=== PATIENT | male | born 1975 | race Caucasian/White ===

== ENCOUNTER 2023-12-14 10:56 | Outpatient (REF) | payer OTHER, SELFPAY ==
[2023-12-14 14:24] LABS: MANUAL DIFF FLAG NO
[2023-12-14 14:28] LABS: Basophils Absolute Auto 0.1 X10*3/uL (0.0-0.2); Basophils Percent Auto 0.6 % (0-2); Eosinophils Absolute Auto 0.2 X10*3/uL (0.0-0.4); Eosinophils Percent Auto 1.9 % (0-4); Hematocrit 43.1 % (42.0-52.0); Hemoglobin 14.7 g/dl (14.0-18.0); Imm Gran Abs Auto 0.09 X10*3/uL (0.00-0.03); Imm Gran Pct Auto 0.9 % (0.0-0.4); Lymphocytes Absolute Auto 3.2 X10*3/uL (1.2-4.9); Lymphocytes Percent Auto 31.5 % (20-40); Mean Corpuscular HGB Conc 34.1 g/dl (31.0-36.0); Mean Corpuscular Hemoglobin 31.7 pg (27.0-33.0); Mean Corpuscular Volume 92.9 fL (80.0-98.0); Mean Platelet Volume 9.4 fL (9.4-12.4); Monocytes Absolute Auto 0.8 X10*3/uL (0.1-1.2); Monocytes Percent Auto 7.8 % (2-11); Neutrophils Absolute Auto 5.9 x10*3/uL (2.0-8.3); Neutrophils Percent Auto 57.3 % (45-73); Platelet Count 191 X10*3/uL (160-400); Red Blood Count 4.64 X10*6/uL (4.60-5.80); Red Cell Distribution Width 14.1 % (11.0-16.0); White Blood Count 10.3 X10*3/uL (4.8-10.8)
[2023-12-14 15:10] LABS: Alanine Aminotransferase 20 U/L (0-40); Albumin Level 4.2 g/dL (3.5-5.0); Alkaline Phosphatase 105 U/L (39-117); Anion Gap 11 (12-20); Aspartate Amino Transferase 24 U/L (5-37); Bilirubin Total 0.4 mg/dL (0.0-1.0); Blood Urea Nitrogen 12 mg/dL (9-16); Calcium 9.5 mg/dL (8.4-10.2); Carbon Dioxide 28 mmol/L (22-29); Chloride 104 mmol/L (96-108); Cholesterol 228 mg/dL (<200); Estimated Glomerular Filt Rate > 60; Glucose Random 101 mg/dL (60-115); HDL Cholesterol 47 mg/dL (>40); LDL Cholesterol Calculated 137 mg/dL (<100); Potassium 4.2 mmol/L (3.3-5.1); Sodium 139 mmol/L (135-145); Total Protein 7.4 g/dL (6.5-8.0); Triglycerides 222 mg/dL (<150)
== END 2023-12-14 10:57 | disposition home or self-care (01) ==
LOC: HO.CHCLDS 10:56
PROVIDERS: Visit Provider Family Medicine
DX: R03.0 Elevated blood-pressure reading, without diagnosis of hypertension (principal)
CPT/HCPCS: 36415; 80053; 80061; 84443; 85025

== ENCOUNTER 2025-01-27 10:01 | Outpatient (REF) | payer MEDICAID, SELFPAY ==
--- OUTSIDE RECORDS SUMMARY | 2025-01-27 11:24 | XMS_ITS | Encounter Summary ---
Author Organization [employer] Address [address] [place] [address] 7 [place] [address] Care Team Providers Care Head Inspector Name Role Phone Zeenat Huitron MD Primary Care Provider [phone] Reason for Visit * Reason Onset Date Comments Lab Orders 01/26/2025 Encounter Details Date Type Department Care Team ([facility] st Contact Info) Description 01/26/2025 Results Follow-Up [facility] CH[facility] MED & PEDS [address] [place] [address] Zeenat Huitron MD [address] [place] [address] Cologuard colon cancer screening Social History Tobacco Use Types Packs/Day Years Used Date Smoking Tobacco: Former Cigarettes Depression Answer Date Recorded Patient Health Questionnaire-9 Score 9 01/09/2025 Patient Health Questionnaire-9 Score 9 01/09/2025 Last PHQ-9: Questionnaire Data Not on file 0 01/09/2025 Depression Answer Date Recorded Patient Health Questionnaire-2 Score 2 01/09/2025 Sex and Gender Information Value Date Recorded Sex Assigned at Male 03/17/2022 10:27 AM EDT Legal Sex Male 10:27 AM EDT Gender Identity Male 03/17/2022 10:27 AM EDT Sexual Orientation Choose not to disclose 2021 10:27 AM EDT documented as of this encounter Miscellaneous Notes * Telephone Encounter - Bisi Zimmer RN - 01/26/2025 1:48 PM EDT TC to pt to inform of information below and assess if pt has questions about cologuard kit. No answer. VM left instructing pt to return call or respond on MyChart documented in this encounter Plan of Treatment Upcoming Encounters Date Type Department Care Team (Late st Contact Info) Description 04/05/2025 1:00 PM EST Office Visit [facility] ADULT DENTAL [address] [place] [address] Ericka Al documented as of this encounter Visit Diagnoses Not on filedocumented in this encounter Additional Health Concerns Assessment Noted Time PHQ-9 Depression Total Score: 9 01/10/20 25 11:40 AM EDT documented as of this encounter Care Teams Head Inspector Relationship Specialty Start Date End Date Zeenat Huitron MD [address] [place] [address] PCP - General Family Medicine 02/27/21 documented as of this encounter
--- OUTSIDE RECORDS SUMMARY | 2025-01-27 11:24 | XMS_ITS | Encounter Summary ---
Author Organization [employer] Address [address] [place] [address] 7 [place] [address] Care Team Providers Care Assistant To The Dean Name Role Phone Zeenat Huitron MD Primary Care Provider [phone] Reason for Visit * Reason Onset Date Comments FYI 10/21/2024 Encounter Details Date Type Department Care Team ([facility] st Contact Info) Description 10/21/2024 Telephone [facility] MEDICINE [address] [place] [address] Zeenat Huitron MD [address] [place] [address] FYI Social History Tobacco Use Types Packs/Day Years Used Date Smoking Tobacco: Former Cigarettes Depression Answer Date Recorded Patient Health Questionnaire-9 Score 9 03/27/2023 Patient Health Questionnaire-9 Score 9 03/27/2023 Last PHQ-9: Questionnaire Data Not on file 1 05/27/2022 Depression Answer Date Recorded Patient Health Questionnaire-2 Score 2 03/27/2023 Sex and Gender Information Value Date Recorded Sex Assigned at Male 03/17/2022 10:27 AM EDT Legal Sex Male 10:27 AM EDT Gender Identity Male 03/17/2022 10:27 AM EDT Sexual Orientation Choose not to disclose 2021 10:27 AM EDT documented as of this encounter Miscellaneous Notes * Telephone Encounter - Kriss Butterfield RN - 10/21/2024 3:27 PM EDT No call made by RNs * Telephone Encounter - Javier Chun - 10/21/2024 3:21 PM EDT Telephone call from patient reporting that someone attempted to contact him but did not leave a message. Patient stated he believes the call may have been to reschedule his appointment, as he was being assisted by a different provider and left appointment. Special Trackwork Blacksmith verified that there are no recent encounters documented. documented in this encounter Plan of Treatment Upcoming Encounters Date Type Department Care Team (Late st Contact Info) Description 04/05/2025 1:00 PM EST Office Visit [facility] ADULT DENTAL [address] [place] [address] Ericka Al documented as of this encounter Visit Diagnoses Not on filedocumented in this encounter Additional Health Concerns Assessment Noted Time PHQ-9 Depression Total Score: 9 03/27/20 23 11:01 AM EST documented as of this encounter Care Teams Assistant To The Dean Relationship Specialty Start Date End Date Zeenat Huitron MD [address] [place] [id number] PCP - General Family Medicine 02/27/21 documented as of this encounter
--- OUTSIDE RECORDS SUMMARY | 2025-01-27 11:24 | XMS_ITS | Encounter Summary ---
Author Organization [employer] Address [address] [place] [address] 7 [place] [address] Care Team Providers Care Paper Products Printer Name Role Phone Zeenat Huitron MD Primary Care Provider [phone] Reason for Visit * Reason Comments Med Refill Encounter Details Date Type Department Care Team (Late st Contact Info) Description 12/23/2023 Refill [facility] MEDICINE [address] [place], [place] [phone] Zeenat Huitron MD [address] [place], [place] [phone] Arm pain, left Social History Tobacco Use Types Packs/Day Years Used Date Smoking Tobacco: Every Day Cigarettes Depression Answer Date Recorded Patient Health [...] AM EDT documented as of this encounter Plan of Treatment Upcoming Encounters Date Type Department Care Team (Late st Contact Info) Description 04/05/2025 1:00 PM EST Office Visit [facility] CH[facility] ADULT DENTAL [address] [place] [address] Ericka Al documented as of this encounter Visit Diagnoses Diagnosis Arm pain, left Pain in soft tissues of limb documented in this encounter Additional Health Concerns Assessment Noted Time PHQ-9 Depression Total Score: 9 03/27/20 23 11:01 AM EST documented as of this encounter Care Teams Paper Products Printer Relationship Specialty Start Date End Date Zeenat Huitron MD [address] [place] [address] PCP - General Family Medicine 02/27/21 documented as of this encounter
--- OUTSIDE RECORDS SUMMARY | 2025-01-27 11:24 | XMS_ITS | Encounter Summary ---
Author Organization [employer] Address [address] [place] [address] 7 [place] [address] Care Team Providers Care Wire Turning Machine Operator Name Role Phone Zeenat Huitron MD Primary Care Provider [phone] Reason for Visit * Reason Comments Med Change Request Encounter Details Date Type Department Care Team ([facility] st Contact Info) Description 05/03/2024 Refill [facility] MED & PEDS [address] [place], [place] [phone] Zeenat Huitron MD [address] [place] [address] Social History Tobacco Use Types Packs/Day Years [...] encounter Miscellaneous Notes * Telephone Encounter - Zeenat Huitron MD - 05/06/2024 11:24 AM EST Insurance does not approve, no alternative, he needs to pay out of pocket documented in this encounter Plan of Treatment Upcoming Encounters Date Type Department Care Team (Late st Contact Info) Description 04/05/2025 1:00 PM EST Office Visit [facility] ADULT DENTAL [address] [place] [address] Ericka Al documented as of this encounter Visit Diagnoses Not on filedocumented in this encounter Additional Health Concerns Assessment Noted Time PHQ-9 Depression Total Score: 9 03/27/20 23 11:01 AM EST documented as of this encounter Care Teams Wire Turning Machine Operator Relationship Specialty Start Date End Date Zeenat Huitron MD [address] [place] [address] PCP - General Family Medicine 02/27/21 documented as of this encounter
--- OUTSIDE RECORDS SUMMARY | 2025-01-27 11:24 | XMS_ITS | Encounter Summary ---
Author Organization [employer] Address [address] [place] [address] 7 [place] [address] Care Team Providers Care Camera Repairer Name Role Phone Zeenat Huitron MD Primary Care Provider [phone] Reason for Visit * Reason Comments Med Change Request Encounter Details Date Type Department Care Team (Late st Contact Info) Description 12/17/2023 Refill [facility] MED & PEDS [address] [place] [address] Zeenat Huitron MD [address] [place] [address] Social History Tobacco Use Types Packs/Day Years [...] Description 04/05/2025 1:00 PM EST Office Visit [facility] ADULT DENTAL [address] [place] [address] Ericka Al documented as of this encounter Visit Diagnoses Not on filedocumented in this encounter Additional Health Concerns Assessment Noted Time PHQ-9 Depression Total Score: 9 03/27/20 23 11:01 AM EST documented as of this encounter Care Teams Camera Repairer Relationship Specialty Start Date End Date Zeenat Huitron MD [address] [place] [address] PCP - General Family Medicine 02/27/21 documented as of this encounter
--- OUTSIDE RECORDS SUMMARY | 2025-01-27 11:24 | XMS_ITS | Encounter Summary ---
Author Organization [employer] Address [address] [place] [address] 7 [place] [address] Care Team Providers Care Orthotist Or Prosthetist Name Role Phone Zeenat Huitron MD Primary Care Provider [phone] Reason for Visit * Reason Onset Date Comments Nurse Triage 08/10/2024 Encounter Details Date Type Department Care Team ([facility] st Contact Info) Description 08/10/2024 Telephone [facility] MEDICINE [address] [place] [address] Zeenat Huitron MD [address] [place] [address] Nurse Triage Social History Tobacco Use Types Packs/Day Years [...] encounter Miscellaneous Notes * Telephone Encounter - Lolita Tran RN - 08/10/2024 4:02 PM EDT Triage call Pt requests japanese interpreter. Called [facility] [place] [id number], [place]. Pt reports dislocation of right shoulder , seen in [facility] 07/25/24. Pt has had follow up tele visit with on 07/26/24. Pt is being seen by surgeon and will return in 2 weeks for another apt. Pt iscalling due to ibuprofen is not helping with the pain. Pt was advised to contact PCP. Pt is advisedto use ice on the shoulder area and/or heat and to keep arm immobilized as much as possible. Pt agrees with this home care advice. ASK apt 08/17/24 215pm with ANGIE Knott in [facility] . Pt agrees with this disposition and insurance is verified as active prior to booking. Protocol Used: Shoulder Injury (Adult) Protocol-Based Disposition: See in Office or Video Visit within 3 Days Video visit not offered Positive Triage Question: * Injury is still painful or swollen after 2 weeks * All higher-acuity triage questions were negative Care Advice Discussed: * Use a Cold Pack for Pain, Swelling, or Bruising * Use Heat on Area After 48 Hours * Rest vs. Movement * Reasons To Call Back - Severe pain lasts over 2 hours after pain medicine and ice - Swelling or bruise becomes over 2 inches (5 cm). - Pain not improved after 3 days - Pain or swelling lasts over 2 weeks - You become worse * Telephone Encounter - Javier Chun - 08/10/2024 3:08 PM EDT Symptom: Arm Injury Outcome: Talk to a nurse or provider within 15 minutes Reason: Severe pain now The caller accepted this outcome. documented in this encounter Plan of Treatment Upcoming Encounters Date Type Department Care Team (Late st Contact Info) Description 04/05/2025 1:00 PM EST Office Visit [facility] ADULT DENTAL [address] [place], [place] [phone] Ericka Al documented as of this encounter Visit Diagnoses Not on filedocumented in this encounter Additional Health Concerns Assessment Noted Time PHQ-9 Depression Total Score: 9 03/27/20 23 11:01 AM EST documented as of this encounter Care Teams Orthotist Or Prosthetist Relationship Specialty Start Date End Date Zeenat Huitron MD [address] [place] [address] PCP - General Family Medicine 02/27/21 documented as of this encounter
--- OUTSIDE RECORDS SUMMARY | 2025-01-27 11:24 | XMS_ITS | Clinical Summary ---
Author Organization [employer] Address [address] [place] [address] 7[address] [place] [address] Care Team Providers Care Blanket Inspector Name Role Phone Zeenat Huitron MD Primary Care Provider [phone] Allergies Active Allergy Reactions Criticality Noted Date Comments Amlodipine 03/04/2021 Other reaction(s): side effec Medications * This document contains information received from the source organization and may not represent a complete record from that organization. methadone (Dolophine) 10 MG/ML solution Take 85 mg by mouth in the morning. BHN Active Diclofenac Sodium 1 % gel APPLY 5GM TOPICALLY IF NEEDED IN THE MORNING,AT NOON IN THE EVENING AT BEDTIME FOR PAIN 200 g 05/04/20 23 Active buPROPion SR (Wellbutrin SR) 150 MG 12 hr tablet Take 1 tablet (150 mg) by mouth 2 times daily. Do not crush, chew, or split. 60 tablet 2 06/18/19 24 Active hydroquinone 4 % creamIndication s:Melasma Apply topically 2 times daily. 30 mL 1 05/03/20 24 025 Active rosuvastatin (Crestor) 40 MG tablet TAKE 1 TABLET BY MOUTH EVERY DAY 90 tablet 1 12/14/19 25 Active losartan (Cozaar) 25 MG tabletIndicatio ns:Elevated blood pressure reading TAKE 1 TABLET (25 MG) BY MOUTH ONCE PER DAY. 90 tablet 3 12/20/19 25 Active gabapentin (Neurontin) 400 MG capsuleIndicati ons:Chronic low back pain, unspecified back pain laterality, unspecified whether sciatica present Take 1 capsule in AM and PM, and 2 capsule at bedtime PO 90 capsule 11 01/12/20 25 Active gabapentin (Neurontin) 300 MG capsuleIndicati ons:Arm pain, left TAKE 1 CAPSULE BY MOUTH IN THE MORNING, 1 CAPSULE IN THE AFTERNOON & 2 CAPSULES BEFORE BEDTIME 120 capsule 3 12/14/19 25 025 Discontinued(In effective) gabapentin (Neurontin) 400 MG capsule Take 1 capsule (400 mg) by mouth 3 times daily. 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 Continue on medication and at home monitoring. Follow up in 3-4 months. 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 Relevant Medications Hydroquinone 4% cream Arm pain, left 03/27/2023 Assessment & Plan (04/24/2023 11:40 AM EST): Patient still presents visit with concerns of arm pain, therefore, will have increase of Gabapentin. Chronic pain of right thumb 03/27/2023 Assessment & Plan (03/27/2023 11:17 AM EST): Patient that presented visit with complaints of pain on L thumb will be sent for X-Rays and treated with Diclofenac Sodium. Chronic low back pain 03/13/2023 03/13/2023 Chronic depression 03/13/2023 03/13/2023 Tobacco user 03/13/2023 03/13/2023 Resolved Problems Problem Noted Date Diagnosed Date Resolved Date Elevated blood pressure reading 03/27/2023 02/03/2024 Assessment & Plan (12/18/2023 8:32 AM EDT): Continue to monitor at home and bring readings on next visit. F/u in 2-3 weeks for recheck. Assessment & Plan (06/18/2023 2:17 PM EST): Patient will be sent for labs for further evaluation. -Labs: CBC, Lipid Panel, Comprehensive Metabolic Panel, TSH/FT4. Assessment & Plan (04/24/2023 11:47 AM EST): Uncontrolled: patient presented visit with elevated blood pressure with readings of 140/92 mmHg. Advised to monitor blood pressure at home, and bring readings upon next office visit. Assessment & Plan (03/27/2023 11:17 AM EST): Uncontrolled: patient that presented visit with an elevated blood pressure with readings of 148/90 mmHg., will have a change of medication: Gabapentin 300MG. Recommended to keep monitoring blood pressure at home, and bring readings upon next office visit. Follow up in 1 month. Encounters * This document contains information received from the source organization and may not represent a complete record from that organization. Date Type Department Care Team Description 01/26/2025 Results Follow-Up [facility] MED & PEDS [address] [place] [address] Zeenat Huitron MD [facility] colon cancer screening 01/11/2025 Telephone [facility] [address] [place] [address] Zeenat Huitron MD Medication Question 01/09/2025 11:15 AM EDT Office Visit [facility] [address] [place] [address] Zeenat Huitron MD Primary hypertension (Primary Dx); Chronic low back pain, unspecified back pain laterality, unspecified whether sciatica present; Screening for colon cancer; Encounter for health-related screening; Positive screening for depression on 9-item Patient Health Questionnaire (PHQ-9) 01/09/2025 Travel 12/30/2024 Patient Outreach [facility] MEDICINE [address] [place] [address] Zeenat Huitron MD Pre-visit Planning (Pre visit planning LVM ) 12/29/2024 Telephone [facility] [address] [place] [address] Zeenat Huitron MD chart prep 12/17/2024 Refill [facility] CHC MED & PEDS [address] [place] [address] Zeenat Huitron MD Elevated blood pressure reading 12/12/2024 Refill [facility] MEDICINE [address] [place] [address] Alli Michaels MD Arm pain, left 12/11/2024 Refill [facility] MED & PEDS [address] [place] [address] Amelie Cook MD Arm pain, left 12/08/2024 Telephone [facility] MED & PEDS [address] [place] [address] Zeenat Huitron MD No Show 12/01/2024 Telephone [facility] MED & PEDS [address] [place] [address] Zeenat Huitron MD chart prep 11/08/2024 Telephone [facility] MEDICINE [address] [place] [address] Zeenat Huitron MD Medication Question from Last 3 Months Immunizations Immunization Administration Dates Next Due Influenza, IIV3, injectable 02/17/2013 Influenza, seasonal, injectable, preservative fr ee 02/01/2024 Pneumococcal Conjugate PCV 20 12/17/2023 Tdap 12/17/2023 Social History Tobacco Use Types Packs/Day Years Used Date Smoking Tobacco: Former Cigarettes Tobacco Cessation:Counseling Given: Not Answered Depression Answer Date Recorded Patient Health Questionnaire-9 [...] not to disclose 2021 10:27 AM EDT Last Filed Vital Signs Vital Sign Reading Time Taken Comments Blood Pressure 126/86 01/09/2025 11:05 AM EDT Pulse 84 01/09/2025 11:05 AM EDT Temperature 36.6 C (97.8 F) 01/09/2025 11:05 AM EDT Respiratory Rate 20 01/09/2025 11:05 AM EDT Oxygen Saturation 99% 01/09/2025 11:05 AM EDT Inhaled Oxygen Concentration - - Weight 60.8 kg (134 lb) 01/09/2025 11:05 AM EDT Height 159 cm (5' 2.6 ) 01/09/2025 11:05 AM EDT Body Mass Index 24.04 01/09/2025 11:05 AM EDT Plan of Treatment Upcoming Encounters Date Type Department Care Team (Late st Contact Info) Description 04/05/2025 1:00 PM EST Office Visit [facility] [address] [place] [address] Ericka Al Health Maintenance Due Date Last Done Comments CT Colonography 1976 Colonoscopy 1976 Colorectal Cancer Screening 1976 FIT DNA/Cologuard 1976 FIT 1976 FOBT 1976 HIV Screening 1976 SDOH Screening 1976 Sigmoidoscopy 1976 Disability Screening 1976 Alcohol/Substance Use Screening 1988 Family Planning (PISQ) 08/27/1991 Hepatitis B Vaccines (1 of 3 - 19+ 3-dose series) 08/27/1995 Dental Oral Exam 09/02/2024 03/03/2024, 06/08/2015, 10/23/2014 Dental Prophylaxis 09/02/2024 03/03/2024 COVID-19 Vaccine (3 - 2024-2 6 season) 2025 07/30/2021, 10/03/2020 Influenza Vaccine (#1) 2025 , 02/17/2013 Dental X-Ray: Bitewings 03/04/2025 03/03/20 24, 10/23/2014 Depression Monitoring 07/12/2025 01/09/2025 , 01/09/2025 Tobacco Screening 01/09/2026 01/09/2025 Zoster Vaccines (1 of 2) 2026 Dental X-Ray: Full Mouth 03/04/2027 024, 10/23/2014 Lipid Panel 12/13/2028 12/14/2023 DTaP/Tdap/Td Vaccines (2 - T d or Tdap) 12/16/2033 12/17/2023 RSV Patients and Patients Aged 60 years or older (1 - 1-dose 75+ series) 08/27/2051 Pneumococcal Vaccine: Pediatrics (0 to 5 Years) and At-Risk Patients (6 to 49) Years Aged Out 12/17/2023 No longer eligible based on patient's age to complete this topic HIB Vaccines Aged Out No longer eligi ble based on patient's age to complete this topic HPV Vaccines Aged Out No longer eligi ble based on patient's age to complete this topic Hepatitis A Vaccines Aged Out No long er eligible based on patient's age to complete this topic Hepatitis C Screening Discontinued IPV Vaccines Aged Out No longer eligi ble based on patient's age to complete this topic Meningococcal B Vaccine Aged Out No l onger eligible based on patient's age to complete this topic Meningococcal Vaccine Aged Out No neil maria antonia eligible based on patient's age to complete this topic RSV under 20 months Aged Out No longe r eligible based on patient's age to complete this topic Rotavirus Vaccines Aged Out No longer eligible based on patient's age to complete this topic Procedures Procedure Name Priority Date/Time Associated Diagnosis Comments LAB COLOGUARD COLON CANCER SCREEN- Unsuccessful Attempt Routine 01/18/2025 10:46 PM EDT Screening for colon cancer PROPHYLAXIS - ADULT Routine 03/03/2024 1 0:00 AM EDT INTRAORAL - COMPLETE SERIES OF RADIOGRAPHIC IMAGES Routine 03/03/2024 10:00 AM EDT PERIODIC ORAL EVALUATION - ESTABLISHED PATIENT Routine 03/03/2024 10:00 AM EDT LIPID PANEL, STANDARD Routine 12/14/2023 11:13 AM EDT Elevated blood pressure reading from Last 3 Months or Most Recently Relevant to Health Maintenance Results * Cologuard?? colon cancer screening (01/18/2025 10:46 PM EDT) - Unsuccessful Attempt Cologuard Result Sample Could Not Be Processed 9 N/A 01/18/2025 10:46 PM EDT [facility] (CLIA #:[id number]) Comment: The Cologuard (TM) test was assigned to this specimen. An empty collection kit was received in the laboratory. The patient will be contacted to initiate a new sample collection. Stool specimen (specimen) 01/18/2025 10:05 AM EDT us Zeenat Huitron MD LAB MOLECULAR DIAGNOSTICS ORD ERABLES Final Result [facility] (CLIA #:[id number]) [address] [place] [address], [place] [phone] * (ABNORMAL) Lipid Panel, Standard (12/14/2023 11:13 AM EDT) Triglycerides 222(H) <150 mg/dL [facility] Comment:Desirable Triglyceri de: less than 150 mg/dLBorderline High Triglyceride 150-199 mg/dLHigh Triglyceride: 200-499 mg/dLVery High Triglyceride: greater than or equal to 5OO mg/dL Cholesterol 228(H) <200 mg/dL [facility] Comment:Desirable Cholestero l: less than 200 mg/dLBorderline High Cholesterol: 200-239 mg/dLHigh Cholesterol: greater than 239 mg/dL LDL Cholesterol Calculated 137(H) <100 mg/dL [facility] Comment:Desirable LDL: less than 100 mg/dLNear Optimal/Above Optimal LDL: 110- 129 mg/dLBorderline High LDL: 130-159 mg/dLHigh LDL: 160-189 mg/dLVery High LDL: greater than or equal to 190 mg/dL HDL Cholesterol 47 >40 mg/dL [facility] Comment:Desirable HDL: great er than 40 mg/dL Note: This HDL assay may give artificially low results in patients with liver disease. Blood Venous blood specimen / Unknown 12/14/2023 11:13 AM EDT 12/14/2023 2:13 PM EDT Zeenat Huitron MD LAB BLOOD ORDERABLES Final Re sult [facility] [address] [place] [address] [phone] from Last 3 Months or Most Recently Relevant to Health Maintenance Insurance [facility] C3 DENTAL-[facility] MEDICAID STAND ADULT Care Teams Blanket Inspector Relationship Specialty Start Date End Date Zeenat Huitron MD [address] [place] [id number] PCP - General Family Medicine 02/27/21
--- OUTSIDE RECORDS SUMMARY | 2025-01-27 11:24 | XMS_ITS | Encounter Summary ---
Author Organization [employer] Address [address] [place] [address] 7 [place] [address] Care Team Providers Care Filler Sifter Machine Name Role Phone Zeenat Huitron MD Primary Care Provider [phone] Reason for Visit * Reason Onset Date Comments Appointment Request 04/11/2024 Encounter Details Date Type Department Care Team ([facility] st Contact Info) Description 04/11/2024 Telephone [facility] MEDICINE [address] [place] [address] Zeenat Huitron MD [address] [place] [address] Appointment Request Social History Tobacco Use Types Packs/Day Years [...] encounter Miscellaneous Notes * Telephone Encounter - Gatito Crocker - 04/11/2024 11:57 AM EST Tc from pt requesting to r/s appt on 04/12. Contact pt at [phone] documented in this encounter Plan of Treatment Upcoming Encounters Date Type Department Care Team (Late st Contact Info) Description 04/05/2025 1:00 PM EST Office Visit [facility] ADULT DENTAL [address] [place] [address] Ericka Al documented as of this encounter Visit Diagnoses Not on filedocumented in this encounter Additional Health Concerns Assessment Noted Time PHQ-9 Depression Total Score: 9 03/27/20 23 11:01 AM EST documented as of this encounter Care Teams Filler Sifter Machine Relationship Specialty Start Date End Date Zeenat Huitron MD [address] [place] [address] PCP - General Family Medicine 02/27/21 documented as of this encounter
--- OUTSIDE RECORDS SUMMARY | 2025-01-27 11:24 | XMS_ITS | Encounter Summary ---
Author Organization [employer] Address [address] [place] [address] 7 [place] [address] Care Team Providers Care Director Translation Name Role Phone Zeenat Huitron MD Primary Care Provider [phone] Reason for Visit * Reason Onset Date Comments Medication Question 11/08/2024 Encounter Details Date Type Department Care Team ([facility] st Contact Info) Description 11/08/2024 Telephone [facility] MEDICINE [address] [place] [address] Zeenat Huitron MD [address] [place] [phone] Medication Question Social History Tobacco Use Types Packs/Day Years [...] encounter Miscellaneous Notes * Telephone Encounter - James Irizarry - 11/08/2024 10:49 AM EDT Tc from pt requesting call back to disucss increasing dosage on gabapentin (Neurontin) 300 MG capsule. Pt was scheduled an appt back on 10/19 but states he does nto want to see a different provider other than his pcp. Please contact pt at [phone]. documented in this encounter Plan of Treatment Upcoming Encounters Date Type Department Care Team (Late st Contact Info) Description 04/05/2025 1:00 PM EST Office Visit [facility] ADULT DENTAL [address] [place] [address] Ericka Al documented as of this encounter Visit Diagnoses Not on filedocumented in this encounter Additional Health Concerns Assessment Noted Time PHQ-9 Depression Total Score: 9 03/27/20 23 11:01 AM EST documented as of this encounter Care Teams Director Translation Relationship Specialty Start Date End Date Zeenat Huitron MD [address] [place] [address] PCP - General Family Medicine 02/27/21 documented as of this encounter
--- OUTSIDE RECORDS SUMMARY | 2025-01-27 11:24 | XMS_ITS | Encounter Summary ---
Author Organization [employer] Address [address] [place] [address] 7 [place] [address] Care Team Providers Care Insole Cementer Name Role Phone Zeenat Huitron MD Primary Care Provider [phone] Reason for Visit * Reason Comments Med Refill Encounter Details Date Type Department Care Team (Late st Contact Info) Description 06/30/2023 Refill [facility] MED & PEDS [address] [place] [address] Zeenat Huitron MD [address] [place] [address] Social History Tobacco Use Types Packs/Day Years [...] Description 04/05/2025 1:00 PM EST Office Visit [facility] ADULT DENTAL [address] [place] [address] Ericka Al documented as of this encounter Visit Diagnoses Not on filedocumented in this encounter Additional Health Concerns Assessment Noted Time PHQ-9 Depression Total Score: 9 03/27/20 23 11:01 AM EST documented as of this encounter Care Teams Insole Cementer Relationship Specialty Start Date End Date Zeenat Huitron MD [address] [place] [address] PCP - General Family Medicine 02/27/21 documented as of this encounter
--- OUTSIDE RECORDS SUMMARY | 2025-01-27 11:24 | XMS_ITS | Clinical Summary ---
Author Organization [employer] [facility] it[facility] Address [address] [place] [address] Care Team Providers Care Rehab Technician Name Role Phone Unavailable Primary Care Provider Unavailabl e Social History Tobacco Use Types Packs/Day Years Used Date Smoking Tobacco: Never Assessed Sex and Gender Information Value Date Recorded Sex Assigned at Not on file Legal Sex Male 2:16 AM EST Gender Identity Not on file Sexual Orientation Not on file Plan of Treatment Health Maintenance Due Date Last Done Comments DTaP,Tdap,and Td Vaccines (1 - Tdap) 08/27/1995 Hepatitis B Vaccines (1 of 3 - 19+ 3-dose series) 08/27/1995 Depression Screening 05/18/2024 COVID-19 Vaccine (1 - 2023-2 5 season) 2025 Influenza Vaccine (#1) 2025 HIB Vaccines Aged Out No longer eligi ble based on patient's age to complete this topic HPV Vaccines Aged Out No longer eligi ble based on patient's age to complete this topic Hepatitis A Vaccines Aged Out No long er eligible based on patient's age to complete this topic IPV Vaccines Aged Out No longer eligi ble based on patient's age to complete this topic MMR Vaccines Aged Out No longer eligi ble based on patient's age to complete this topic Meningococcal ACWY Vaccine Aged Out N o longer eligible based on patient's age to complete this topic Meningococcal B Vaccine Aged Out No l onger eligible based on patient's age to complete this topic Pneumococcal Vaccine: Pediat rics (0 to 5 Years) and At-Risk Patients (6 to 49 Years) Aged Out No longer eligible b ased on patient's age to complete this topic RSV Immunization Patients Un margarito 20 months Aged Out No longer eligible b ased on patient's age to complete this topic Varicella Vaccines Aged Out No longer eligible based on patient's age to complete this topic
--- OUTSIDE RECORDS SUMMARY | 2025-01-27 11:24 | XMS_ITS | Encounter Summary ---
Author Organization [employer] Address [address] [place] [address] 7 [place] [address] Care Team Providers Care Gear Room Keeper Name Role Phone Zeenat Huitron MD Primary Care Provider [phone] Reason for Visit * Reason Comments Med Change Request Encounter Details Date Type Department Care Team (Late st Contact Info) Description 12/17/2023 Refill [facility] MED & PEDS [address] [place] [address] Zeenat Huitron MD [address] [place] [address] Social History Tobacco Use Types Packs/Day Years [...] Description 04/05/2025 1:00 PM EST Office Visit [facility] ADULT DENTAL [address] [place] [address] Ericka Al documented as of this encounter Visit Diagnoses Not on filedocumented in this encounter Additional Health Concerns Assessment Noted Time PHQ-9 Depression Total Score: 9 03/27/20 23 11:01 AM EST documented as of this encounter Care Teams Gear Room Keeper Relationship Specialty Start Date End Date Zeenat Huitron MD [address] [place] [address] PCP - General Family Medicine 02/27/21 documented as of this encounter
--- OUTSIDE RECORDS SUMMARY | 2025-01-27 11:24 | XMS_ITS | Encounter Summary ---
Author Organization [employer] Address [address] [place] [address] 7 [place] [address] Care Team Providers Care Cnc Lathe Programmer Name Role Phone Zeenat Huitron MD Primary Care Provider [phone] Reason for Visit * Reason Comments Med Change Request Encounter Details Date Type Department Care Team (Late Contact Info) Description 05/21/2024 Refill [facility] MED & PEDS [address] [place] [address] Alli Michaels MD [address] [place] [address] Melasma Social History Tobacco Use Types Packs/Day Years [...] Encounters Date Type Department Care Team (Late Contact Info) Description 04/05/2025 1:00 PM EST Office Visit [facility] ADULT DENTAL [address] [place] [address] Ericka Al documented as of this encounter Visit Diagnoses Diagnosis Melasma Other dyschromia documented in this encounter Additional Health Concerns Assessment Noted Time PHQ-9 Depression Total Score: 9 03/27/20 23 11:01 AM EST documented as of this encounter Care Teams Cnc Lathe Programmer Relationship Specialty Start Date End Date Zeenat Huitron MD [address] [place] [address] PCP - General Family Medicine 02/27/21 documented as of this encounter
[2025-01-27 14:24] LABS: MANUAL DIFF FLAG NO
[2025-01-27 14:32] LABS: Hematocrit 38.7 % (42.0-52.0); Hemoglobin 12.9 g/dl (14.0-18.0); Imm Gran Abs Auto 0.04 X10*3/uL (0.00-0.03); Imm Gran Pct Auto 0.5 % (0.0-0.4); Lymphocytes Absolute Auto 1.3 X10*3/uL (1.2-4.9); Mean Corpuscular HGB Conc 33.3 g/dl (31.0-36.0); Mean Corpuscular Hemoglobin 31.5 pg (27.0-33.0); Mean Corpuscular Volume 94.6 fL (80.0-98.0); NRBC Abs Auto 0.000 X10*3/uL (0.0-0.012); NRBC Pct Auto 0.0 /100WBC (0.0-0.2); Platelet Count 163 X10*3/uL (160-400); Red Blood Count 4.09 X10*6/uL (4.60-5.80); White Blood Count 8.3 X10*3/uL (4.8-10.8)
[2025-01-27 14:38] LABS: Appearance Urine Turbid; Glucose Urine UA Negative (Negative); PH 5.5 (5.0-9.0); Specific Gravity - Urine 1.020 (1.005-1.025)
[2025-01-27 15:10] LABS: Alanine Aminotransferase 25 U/L (0-40); Albumin Level 4.5 g/dL (3.5-5.0); Alkaline Phosphatase 124 U/L (39-117); Anion Gap 11 (12-20); Aspartate Amino Transferase 44 U/L (5-37); Blood Urea Nitrogen 17 mg/dL (9-16); Calcium 9.2 mg/dL (8.4-10.2); Carbon Dioxide 28 mmol/L (22-29); Chloride 106 mmol/L (96-108); Cholesterol 99 mg/dL (<200); Estimated Glomerular Filt Rate 54; HDL Cholesterol 44 mg/dL (>40); Potassium 5.4 mmol/L (3.3-5.1); Sodium 140 mmol/L (135-145); Total Protein 7.2 g/dL (6.5-8.0); Triglycerides 49 mg/dL (<150)
[2025-01-27 15:26] LABS: PSA,Total (Free>4and<10) 0.35 ng/mL (0.00-4.00)
[2025-01-28 08:44] LABS: HBS Num1 418.90 mIU/mL (0-7.99); HBc Num1 0.15 S/CO (0.00-0.79); HBsAGNum1 0.35 S/CO (0.00-0.99); HIV Num 1 0.04 S/CO (0.00-0.99); Hepatitis B Surface Antigen Negative (Negative); ~Hepatitis B Surface Antibody REACTIVE (Nonreactive)
== END 2025-01-27 10:02 | disposition home or self-care (01) ==
LOC: HO.CHCLDS 10:01
PROVIDERS: Visit Provider Family Medicine
DX: Z11.4 Encounter for screening for human immunodeficiency virus [HIV] (principal); Z11.59 Encounter for screening for other viral diseases; I10 Essential (primary) hypertension
CPT/HCPCS: 36415; 80053; 80061; 81003; 84153; 85025; 86704; 86706; 87340; 87389

== ENCOUNTER 2025-02-13 14:27 | Outpatient (REF) | payer MEDICAID, SELFPAY ==
--- OUTSIDE RECORDS SUMMARY | 2025-02-13 11:15 | XMS_ITS | Encounter Summary ---
Author Organization [employer] Address [address] [place] [address] 7 [place] [address] Care Team Providers Care Technical Project Coordinator Name Role Phone Zeenat Huitron MD Primary Care Provider [phone] Reason for Referral * Consultation (Routine) - Pending Review Specialty Diagnoses / Procedures Referred By Marissa ferrera Referred To Contact Urology Diagnoses Kidney stones Zeenat Huitron MD [address] [place] [address] Phone: tel: fax: Referral ID Status Reason Start Date Expiration Date Visits Requested Visits Authorized [id number] Pending Review Specialty Services Required 02/13/2025 02/13/2026 1 1 Encounter Details Date Type Department Care Team ([facility] st Contact Info) Description 02/13/2025 11:15 AM EDT Office Visit [facility] MED & PEDS [address] [place] [address] Zeenat Huitron MD [address] [place] [address] Primary hypertension (Primary Dx); Chronic low back pain, unspecified back pain laterality, unspecified whether sciatica present; Abnormal flushing and sweating; Kidney stones Social History Tobacco Use Types Packs/Day Years Used Date Smoking Tobacco: Former Cigarettes Depression Answer Date Recorded Patient Health Questionnaire-9 Score 5 02/13/2025 Patient Health Questionnaire-9 Score 5 02/13/2025 Last PHQ-9: Questionnaire Data Not on file 0 02/13/2025 Housing Stability Answer Date Recorded What is your housing situation today? I have lucy wolfe 02/13/[address] you li ve. Do you have problems with any of the following? None of the above 02/13/2025 Food Insecurity Answer Date Recorded Within the past 12 months, y ou worried that your food would run out before you got money to buy more: Sometimes True 2024 Within the past 12 months,th e food you bought just didn't last and you didn't have enough money to get more: Sometimes True 02/13/2025 Transportation Answer Date Recorded In the past 12 months, has l ack of transportation kept you from medical appts, meetings, work or from getting things needed for daily living? No 02/13/2025 Utilities Answer Date Recorded In the past 12 months, has t he electric, gas, oil or water company threatened to shut off services in your home? No 02/13/2025 Depression Answer Date Recorded Patient Health Questionnaire-2 Score 0 02/13/2025 Internet Access Answer Date Recorded Internet Access Q1 Yes 02/13/2025 Internet Access Q2 Not on file 02/13/2025 Sex and Gender Information Value Date Recorded Sex Assigned at Male 03/17/2022 10:27 AM EDT Legal Sex Male 10:27 AM EDT Gender Identity Male 03/17/2022 10:27 AM EDT Sexual Orientation Choose not to disclose 2021 10:27 AM EDT documented as of this encounter Last Filed Vital Signs Vital Sign Reading Time Taken Comments Blood Pressure 133/90 02/13/2025 11:16 AM EDT Pulse 90 02/13/2025 11:16 AM EDT Temperature 36.4 C (97.6 F) 02/13/2025 11:16 AM EDT Respiratory Rate 20 02/13/2025 11:16 AM EDT Oxygen Saturation 99% 02/13/2025 11:16 AM EDT Inhaled Oxygen Concentration - - Weight 60.3 kg (133 lb) 02/13/2025 11:16 AM EDT Height 159 cm (5' 2.6 ) 02/13/2025 11:16 AM EDT Body Mass Index 23.86 02/13/2025 11:16 AM EDT documented in this encounter Functional Status * Over the past 2 weeks, how often have you been bothered by any of the following problems? Question Answer Date of Assessment Author Patient Health Questionnaire -2 Score 0 02/13/2025 11:16 AM EDT Wood Mcguire MA * Little interest or pleasure in doing things Answer Date of Assessment Author Not at all 02/13/2025 11:16 AM EDT Wood Mcguire MA * Feeling down, depressed, or hopeless Answer Date of Assessment Author Not at all 02/13/2025 11:16 AM EDT Wood Mcguire MA * Trouble falling or staying asleep, or sleeping too much Answer Date of Assessment Author Nearly every day 02/13/2025 11:16 AM EDT Wood Mcguire MA * Feeling tired or having little energy Answer Date of Assessment Author Not at all 02/13/2025 11:16 AM APRILT Wood Mcguire MA * Poor appetite or overeating Answer Date of Assessment Author Several days 02/13/2025 11:16 AM APRILT Wood Mcguire MA * Feeling bad about yourself - or that you are a failure or have let yourself or your family down Answer Date of Assessment Author Not at all 02/13/2025 11:16 AM Wood Platt MA * Trouble concentrating on things, such as reading the newspaper or watching television Answer Date of Assessment Author Several days 02/13/2025 11:16 AM Wood Platt MA * Moving or speaking so slowly that other people could have noticed? Or the opposite - being so fidgety or restless that you have been moving around a lot more than usual. Answer Date of Assessment Author Not at all 02/13/2025 11:16 AM Wood Platt MA * Thoughts that you would be better off or hurting yourself in some way Answer Date of Assessment Author Not at all 02/13/2025 11:16 AM Wood Platt MA * Patient Health Questionnaire-9 Score Answer Date of Assessment Author 5 02/13/2025 11:16 AM Wood Platt MA * How difficult have these problems made it for you to do your work, take care of things at home, or get along with other people? Answer Date of Assessment Author Not difficult at all 02/13/2025 11:16 AM EDT Wood Brewster MA documented as of this encounter Plan of Treatment Upcoming Encounters Date Type Department Care Team (Late st Contact Info) Description 04/05/2025 1:00 PM EST Office Visit [facility] ADULT DENTAL [address] [place] [address] Ericka Al Scheduled Orders Name Type Priority Associated Diagnoses Orde r Schedule TSH W/Reflex to FT4 Lab Routine Abnormal flushing and sweating Expected: 02/13/2025 (Approximate), Expires: 02/13/2026 T-SPOT .TB Lab Routine Abnormal flushing and sweating Expected: 02/13/2025 (Approximate), Expires: 02/13/2026 HIV-1/2 Antigen and Antibodies, Fourth Generation, with Reflexes Lab Routine Abnormal flushing and sweating Expected: 02/13/2025 (Approximate), Expires: 02/13/2026 Sed Rate by Modified [place]gren Lab Routine Abnormal flushing and sweating Expected: 02/13/2025, Expires: 02/13/2026 C-reactive Protein Lab Routine Abnormal flushing and sweating Expected: 02/13/2025 (Approximate), Expires: 02/13/2026 Stone Analysis with Image Lab Routine Kidney stones Expected: 02/13/2025 (Approximate), Expires: 02/13/2026 Scheduled Referrals Name Type Priority Associated Diagnoses Orde r Schedule Referral to Urology Outpatient Referral Routine Kidney stones Expected: 02/13/2025 (Approximate), Expires: 02/13/2026 documented as of this encounter Visit Diagnoses Diagnosis Primary hypertension- Primary Unspecified essential hypertension Chronic low back pain, unspecified back pain laterality, unspecified whether sciatica present Abnormal flushing and sweating Kidney stones Calculus of kidney documented in this encounter Additional Health Concerns Assessment Noted Time PHQ-9 Depression Total Score: 5 02/14/20 25 11:16 AM EDT documented as of this encounter Care Teams Technical Project Coordinator Relationship Specialty Start Date End Date Zeenat Huitron MD [address] [place] [address] PCP - General Family Medicine 02/27/21 documented as of this encounter
--- OUTSIDE RECORDS SUMMARY | 2025-02-13 16:19 | XMS_ITS | Encounter Summary ---
Author Organization [employer] Address [address] [place] [address] 7 [place] [address] Care Team Providers Care Nurses Superintendent Name Role Phone Zeenat Huitron MD Primary Care Provider [phone] Reason for Visit * Reason Onset Date Comments Medication Question 11/08/2024 Encounter Details Date Type Department Care Team ([facility] st Contact Info) Description 11/08/2024 Telephone [facility] MEDICINE [address] [place] [address] Zeenat Huitron MD [address] [place] [phone] Medication Question Social History Tobacco Use Types [...] than his pcp. Please contact pt at [phone]. documented in this encounter Plan of Treatment Upcoming Encounters Date Type Department Care Team (Late st Contact Info) Description 04/05/2025 1:00 PM EST Office Visit [facility] ADULT DENTAL [address] [place] [address] Ericka Al documented as of this encounter Visit Diagnoses Not on filedocumented in this encounter Additional Health Concerns Assessment Noted Time PHQ-9 Depression Total Score: 9 03/27/20 23 11:01 AM EST documented as of this encounter Care Teams Nurses Superintendent Relationship Specialty Start Date End Date Zeenat Huitron MD [address] [place] [address] PCP - General Family Medicine 02/27/21 documented as of this encounter
--- OUTSIDE RECORDS SUMMARY | 2025-02-13 16:19 | XMS_ITS | Encounter Summary ---
Author Organization [employer] Address [address] [place] [address] 7 [place] [address] Care Team Providers Care Telecommunications Field Technician Name Role Phone Zeenat Huitron MD Primary Care Provider Reason for Visit * Reason Onset Date Comments FYI 10/21/2024 Encounter Details Date Type Department Care Team ([facility] st Contact Info) Description 10/21/2024 Telephone [facility] MEDICINE [address] [place] [address] Zeenat Huitron MD [address] [place] [address] FYI Social History Tobacco Use Types Packs/Day [...] by a different provider and left appointment. Customer Experience Manager verified that there are no recent encounters documented. documented in this encounter Plan of Treatment Upcoming Encounters Date Type Department Care Team (Late st Contact Info) Description 04/05/2025 1:00 PM EST Office Visit [facility] ADULT DENTAL [address] [place] [address] Ericka Al documented as of this encounter Visit Diagnoses Not on filedocumented in this encounter Additional Health Concerns Assessment Noted Time PHQ-9 Depression Total Score: 9 03/27/20 23 11:01 AM EST documented as of this encounter Care Teams Telecommunications Field Technician Relationship Specialty Start Date End Date Zeenat Huitron MD [address] [place] [address] PCP - General Family Medicine 02/27/21 documented as of this encounter
--- OUTSIDE RECORDS SUMMARY | 2025-02-13 16:19 | XMS_ITS | Encounter Summary ---
Author Organization [employer] Address [address] [place] [address] [address] [place] [address] Care Team Providers Care Tax Compliance Officer Name Role Phone Zeenat Huitron MD Primary Care Provider [phone] Reason for Visit * Reason Comments Med Refill Encounter Details Date Type Department Care Team (Late st Contact Info) Description 06/30/2023 Refill [facility] MED & PEDS [address] [place] [address] Zeenat Huitron MD [address] [place] [address] Social History Tobacco Use Types Packs/Day Years [...] Description 04/05/2025 1:00 PM EST Office Visit [facility] ADULT DENTAL [address] [place] [address] Ericka Al documented as of this encounter Visit Diagnoses Not on filedocumented in this encounter Additional Health Concerns Assessment Noted Time PHQ-9 Depression Total Score: 9 03/27/20 23 11:01 AM EST documented as of this encounter Care Teams Tax Compliance Officer Relationship Specialty Start Date End Date Zeenat Huitron MD [address] [place] [address] PCP - General Family Medicine 02/27/21 documented as of this encounter
--- OUTSIDE RECORDS SUMMARY | 2025-02-13 16:19 | XMS_ITS | Data Portability ---
Author Organization [facility], [facility] [place] [place] Address [address] [place] [address] Care Team Providers Care Cloth Mercerizing Supervisor Name Role Phone LARRY ALBARADO Referring Provider Assessment Encounter Date Assessment Date Assessment LastModified by Organization Details LastModified Time 03/18/2024 03/18/2024 A: Strength continues to improve, remains quick to fatigue with carrying heavy weight for distance. P: Continue to progress end ROM, forearm/wrist strength and functional mobility. 2 x week [email or web address] Not available 03/21/2024 00:19:55 03/21/2024 03/21/2024 A: Good control and strength of wrist extensors/fle xors. Endurance improving. P: Continue to progress end ROM, forearm/wrist strength and functional mobility. 2 x week [email or web address] Not available 03/22/2024 12:04:40 Plan of Treatment Reminders Order Date Submit Date Provider Last Modified By Organization Details Last Modified Time Details Appointments None record ed. Lab None record ed. Referral physic al therap ist referr al - Dynami c stabil izatio n progra m Perisc apular streng thenin g. 2024 025 [email or web address] [facility] ([facility]), [address], [place], [address], 5 11:31:25 Procedures None record ed. Surgeries None record ed. Imaging MRI, should er, w/o contra st - anteri or should er disloc ation with glenoi d rim injury , (bony bankar t) 2024 025 sana [facility] ([facility]), [address], [place], [address], 5 11:31:25 XR, should er, 2 or more view - room 217 right should er 2024 025 sana [facility], [address], [facility] [address], [place], [address], 5 11:31:25 Medication Orders naprox en 500 mg tablet 2024 025 [id number], [address] [place], [address], 11:36:00 Patient TargetsNo targets recorded. Patient InstructionsNo instructions recorded. Reason for Referral Physical Therapist Referral for Dislocation of shoulder joint Dynamic stabilization programPeriscapular strengthening. Referring Physician: Jesus Saha, Orthopedic Surgery, Encounter Date: 08/17/2024 Results Created Date Observation Date Name Description Value Unit Range Abnormal Flag Note LastModifiedBy Organization Detail LastModifiedTime 02/19/2002/19/2024 XR, rj mahajan, 2 view http:/ [email or web address] ?Encry pted=s hAaTro YD8dLq bEUv6g %2BXZw aYqtaq 0bqfl% 2Fg9IQ a4ajBk vP9nXo QUaueC m3YtLR FvZlgJ JJ8mAn HZtai3 3y3320 AC0Kqa 3%2BDW aGvKiQ trMwF INTERFACE [facility] Office [address], [place], [address], 02/19/2024 10:45:45 02/19/20 24 02/19/2024 XR, levara rm, 2 view [email or web address]:/ [email or web address] ?Encry pted=s hAaTro YD8dLq bEUv6g %2BXZw aYqtaq 0bqfl% 2Fg9IQ a4ajBk vP9nXo QUaueC m3YtLR FvZlgJ JJ8[place] HZtai3 6k0146 AC0Kqa 3%2BDW aGvKiQ trMwF INTERFACE [facility] [address], [place], [address], 02/19/2024 10:45:47 08/18/19 25 08/17/2024 XR, catherine pimentel, 2 or more view http:/ [email or web address] ?Encry pted=s hAaTro YD8dLq bEUv6g %2BXZw aYqtaq 0bqfl% 2Fg9IQ a4ajBk vP9nXo QUaueC m3YtLR FvZlgJ JJ8[place] HZtai3 3x3750 AC0KqY 32MUKS lKiQtr MwF INTERFACE [facility] [address] [facility] [address], [place], [address], 08/17/2024 11:27:06 08/18/19 25 08/17/2024 XR, catherine pimentel, 2 or more view http:/ [email or web address] ?Encry pted=s hAaTro YD8dLq bEUv6g %2BXZw aYqtaq 0bqfl% 2Fg9IQ a4ajBk vP9nXo QUaueC m3YtLR FvZlgJ JJ8[place] HZtai3 3b0381 AC0KqY 32MUKS lKiQtr MwF INTERFACE [facility] [address] [facility] [address], [address], 08/17/2024 11:27:08 08/30/19 25 2024 MRI, catherine pimentel, w/o contr ast [facility] Access ion Number : [id number] Kim t Name: Alonzo Mukund sutton Record Number : [id number] Date of : 1975 Date of Exam: 2024 Referr ing Physic ella: Cavana gh, Michae l [facility] [address], [address] [place] [address] Exam: MR Should er (C-) CPT 16271 - Right Room Descri ption: [place] [facility] 3.0T MR Should er (C-) CPT 32932 TECHNI QUE: MRI of the right should er was perfor med withou t intrav enous contra st. Reason For Exam: M24.81 1 - Other specif ic joint derang ements of right should er, not elsewh ere classi fied, anteri or should er disloc ation with glenoi d rim injury , (bony Bankar t). COMPAR ASHLYN: None availa ble. FINDIN GS: ROTATO R CUFF: Mild supras pinatu s tendin osis with small partia l-thic kness articu lar surfac e rim rent tear. Infras pinatu s, subsca pulari s and teres minor tendon s intact . There is normal muscle bulk. FLUID: Small glenoh umeral joint effusi on. No fluid in the subacr omial/ subdel toid bursa. GLENOI D LABRUM AND BICEPS TENDON : There is a superi or labral tear propag ating anteri samantha and patient services technician iorly. There is a displa kevin anteri or inferi or labral tear with glenol abral articu lar disrup tion and underl suman bony Bankar t fractu re (discu ssed below) . The long head of the biceps tendon is in the groove . There is aponeu rotic expans ion of the supras pinatu s tendon with a diminu tive underl suman long head biceps tendon sugges ting injury . Evalua tion limite d due to motion artifa ct. Inferi or glenoh umeral ligame nt appear s lax with suspec no avulsi on at walter l attach ment. AC JOINT: The acromi oclavi cular joint is unrema rkable . Mild infero latera l slopin g of acromi on. CARTIL AGE: The articu lar cartil age is of normal thickn ess. BONES AND SOFT TISSUE S: There is a large Hill-S achs deform ity with severe patchy bone marrow edema throug hout the latera l walter l head. There is a bony Bankar t fractu re of the anteri or inferi or glenoi d with mild patient services technician ior inferi or displa cement of fractu re fragme nt. IMPRES TREVOR: 1. Large Hill-S achs deform ity with severe bone marrow edema throug hout latera l walter l head. 2. Bony Bankar t fractu re of anteri or inferi or glenoi d with mild patient services technician ior inferi or displa cement of fractu re fragme nt. 3. SLAP tear and anteri or inferi or labral tear with glenol abral articu lar disrup tion. 4. Suspec no walter l avulsi on of inferi or glenoh umeral ligame nt. 5. Diminu tive long head of biceps tendon within groove sugges ting tendon injury . 6. Mild supras pinatu s tendin osis with small partia l-thic kness articu lar surfac e rim rent tear. Rotato r cuff tendon s otherw ise intact . 7. Small glenoh umeral joint effusi on. Electr onical ly Signed By: Nino Adams MD [email or web address] [facility] ([facility]) [address] [facility] [address], [place], [address], 08/29/2024 15:39:02 Result Notes Documentation Provider Name and Address Organization Details Recorded Time Xr, Shoulder, 2 Or More View : [email or web address] Encrypted=aqLbWzmFH5lTzwA Uv6g%2MANftNbwpz0xywg%2Fg 0SXt8ogSeoB9hKxLNpofPl5Cw JBCpGolWTK5yMtUNnom46t425 2HQ0HdA15GUDMvAkHwfElR Not Available [facility] 08/17/2024 11:27:06 Xr, Shoulder, 2 Or More View : [email or web address] Encrypted=umOaLcpQD6uZabU Uv6g%2IQAauDuxnu6nvnw%2Fg 0XSk7gvVykY5uBbZDjwlUd5Qr JDMgAgnYWI9yFvEFwqg23b742 0FP0UsK23HNZGoTiXyfUiV Not Available [facility] 08/17/2024 11:27:08 Mri, Shoulder, W/o Contrast : [facility] Accession Number: [id number] Patient Name: Mukund Rosado Date of : 1975 Date of Exam: 2024 Referring Physician: Jesus Saha [facility] ([facility]) [address], [address] [place] [address] Exam: MR Shoulder (C-) CPT 38555 - Right Room Description: [facility] 3.0T MR Shoulder (C-) CPT 17148 TECHNIQUE: MRI of the right shoulder was performed without intravenous contrast. Reason For Exam: M24.811 - Other specific joint derangements of right shoulder, not elsewhere classified, anterior shoulder dislocation with glenoid rim injury, (bony Bankart). COMPARISON: None available. FINDINGS: ROTATOR CUFF: Mild supraspinatus tendinosis with small partial-thickness articular surface rim rent tear. Infraspinatus, subscapularis and teres minor tendons intact. There is normal muscle bulk. FLUID: Small glenohumeral joint effusion. No fluid in the subacromial/subdeltoid bursa. GLENOID LABRUM AND BICEPS TENDON: There is a superior labral tear propagating anteriorly and posteriorly. There is a displaced anterior inferior labral tear with glenolabral articular disruption and underlying bony Bankart fracture (discussed below). The long head of the biceps tendon is in the groove. There is aponeurotic expansion of the supraspinatus tendon with a diminutive underlying long head biceps tendon suggesting injury. Evaluation limited due to motion artifact. Inferior glenohumeral ligament appears lax with suspected avulsion at humeral attachment. AC JOINT: The acromioclavicular joint is unremarkable. Mild inferolateral sloping of acromion. CARTILAGE: The articular cartilage is of normal thickness. BONES AND SOFT TISSUES: There is a large Hill-Sachs deformity with severe patchy bone marrow edema throughout the lateral humeral head. There is a bony Bankart fracture of the anterior inferior glenoid with mild posterior inferior displacement of fracture fragment. IMPRESSION: 1. Large Hill-Sachs deformity with severe bone marrow edema throughout lateral humeral head. 2. Bony Bankart fracture of anterior inferior glenoid with mild posterior inferior displacement of fracture fragment. 3. SLAP tear and anterior inferior labral tear with glenolabral articular disruption. 4. Suspected humeral avulsion of inferior glenohumeral ligament. 5. Diminutive long head of biceps tendon within groove suggesting tendon injury. 6. Mild supraspinatus tendinosis with small partial-thickness articular surface rim rent tear. Rotator cuff tendons otherwise intact. 7. Small glenohumeral joint effusion. Electronically Signed By: Nino strickland [place] - [facility] 08/29/2024 15:39:02 Problems Name Problem SNOMED Code Status Onset Date Resolution Date Notes Provider Name and Address Organization Details Recorded Time Fracture of forearm 44714742 Active 2023 EMILY strickland [place] - [facility] 4 10:51:30 Pain of right shoulder region Active 2024 Jesus Saha PA-C [address], [place], [address], [facility] - [facility] 5 11:16:04 Dislocation of shoulder joint 902822388 Active 2024 Jesus Saha PA-C [address], [place], [address], [facility] - [facility] 5 11:34:28 Derangement of right shoulder joint 9170469251339 9105 Active 2024 Jesus Saha PA-C [address], [place], [address], [facility] - [facility] 5 11:34:40 Instability of right shoulder joint 771626056 Active 2024 Jesus Saha PA-C [address], [place], [address], [facility] - [facility] 5 11:47:13 Problem Notes None recorded. Procedures Surgical History Date Name Laterality Status Provider Name and Address Organization Details Recorded Time 4 58611 Therapeutic Exercise (1:1) completed Kit Aragon DPT [address] [facility], [place], [address], [facility] 03/22/2024 12:03:02 4 26145 Therapeutic Exercise (1:1) completed David Mcdowell CLUB MANAGER [address], [place], [address], [facility] 03/18/2024 14:34:10 4 60857 Therapeutic Exercise (1:1) completed David Mcdowell CLUB MANAGER [address], [place], [address], [facility] 03/14/2024 12:54:14 4 02664 Therapeutic Exercise (1:1) completed Kit Aragon DPT [address], [place], [address], [facility] 03/09/2024 15:31:54 4 16013 Therapeutic Exercise (1:1) completed Kit Aragon DPT [address], [place], [address], [facility] 03/02/2024 15:41:04 4 88925 Therapeutic Exercise (1:1) completed David Mcdowell PTA [address], [place], [address], [facility] 02/24/2024 14:42:52 4 90498 Therapeutic Exercise (1:1) completed David Mcdowell CLUB MANAGER [address], [place], [address], [facility] 02/12/2024 09:40:07 4 32093 Therapeutic Exercise (1:1) completed Kit Aragon DPT [address], [place], [address], [facility] 02/10/2024 09:34:22 4 53271: Low complexity PT Eval completed Kit Aragon DPT [address], [place], [address], [facility] 02/10/2024 09:34:22 4 13605 Therapeutic Exercise (1:1) completed Kelly Chand DPT [address], [place], [address], [facility] 01/12/2024 15:12:28 4 40102: Low complexity PT Eval completed Kelly Chand DPT [address], [place], [address], [facility] 01/12/2024 15:12:24 Imaging Results None recorded. Procedure Notes None recorded. Medical Equipment None Reported. Allergies No known drug allergies Medications Name Sig Start Date Stop Date Status Note LastModified by Organization Details LastModified Time bupropion HCl SR 150 mg tablet,12 hr sustained-r elease TAKE 1 TABLET BY MOUTH 2 TIMES DAILY. DO NOT CRUSH, CHEW, OR SPLIT. 11/11 completed Not Available Not Available Not Available nicotine 14 mg/24 hr daily transdermal patch APPLY 1 PATCH TO SKIN ONCE A DAY FOR SMOKING CESSATION 11/11 completed Not Available Not Available Not Available ibuprofen 800 mg tablet TAKE 1 TABLET BY MOUTH THREE TIMES A DAY FOR 30 DAYS active Not Available Not Available No t Available nicotine (polacrilex ) 2 mg gum CHEW 1 EACH (2 MG) EVERY 2 (TWO) HOURS IF NEEDED FOR SMOKING CESSATION . active Not Available Not Available No t Available methadone 10 mg tablet Take 1 tablet every 8 hours by oral route. active Not Available Not Available No t Available hydroquinon e 4 % topical cream APPLY TO AFFECTED AREA TWICE A DAY active Not Available Not Available No t Available nicotine (polacrilex ) 4 mg gum CHEW 1 PIECE IN MOUTH EVERY TWO HOURS NEEDED FOR SMOKING CESSATION 11/11 completed Not Available Not Available Not Available losartan 25 mg tablet TAKE 1 TABLET (25 MG) BY MOUTH ONCE PER DAY. active Not Available Not Available No t Available gabapentin 300 mg capsule TAKE 1 CAPSULE BY MOUTH IN THE MORNING, 1 CAPSULE IN THE AFTERNOON & 2 CAPSULES BEFORE BEDTIME active Not Available Not Available No t Available naproxen 500 mg tablet TAKE 1 TABLET BY MOUTH TWICE A DAY NEEDED 2024 active Not Available Not Available Not Avai lable rosuvastati n 40 mg tablet TAKE 1 TABLET BY MOUTH EVERY DAY active Not Available Not Available No t Available gabapentin active Not Available Not Av ailable Not Available diclofenac 1 % topical gel APPLY 5 GRAMS TOPICALLY IF NEEDED IN THE MORNING,A T NOON IN THE EVENING AT BEDTIME FOR PAIN 11/11 completed Not Available Not Available Not Available Vitals Date Recorded Body height Body mass index (BMI) Body weight Provider Name and Address Organization Details Last Updated DateTime 08/17/2024 157.48 cm 23.8 kg/m2 65018.01 g Jesus Saha PA-C [address] [facility] [address] [place] [address], [address], [facility] 08/17/2024 11:14:40 Date Recorded Body height Body mass index (BMI) Body weight Provider Name and Address Organization Details Last Updated DateTime 08/31/2024 157.48 cm 23.8 kg/m2 56887.01 g Jesus Saha PA-C [address] [facility] [address] [place] [address], [address], [facility] 08/31/2024 11:01:31 Date Recorded Body height Body mass index (BMI) Body weight Provider Name and Address Organization Details Last Updated DateTime 10/18/2024 157.48 cm 23.8 kg/m2 73344.01 bruna Saha PA-C [address] [facility] [address] [place] [address], [address], [facility] 10/18/2024 10:04:18 Social History Question Answer Notes LastModified by Organizat [email or web address] Details LastModified Time Tobacco Smoking Status Never Smoker Jesus Saha PA-C [address] [facility], [place], [address], [facility] 08/17/2024 11:15:10 Which Illicit Or Recreational Drugs Have You Used? Marijuana [email or web address] Information not available 08/17/2024 Sex: Unknown Functional Status Question Answer Note LastModified by Organizat ion Details LastModified Time Do you use any illicit or recreational drugs? [email or web address] Information not available 08/17/2024 What is your level of alcohol consumption? None [email or web address] [id number] Information not available 08/17/2024 Mental Status None recorded. Family History Nothing Reported. Medical History Condition Response Hypertension Y Cholesterol Y Past Encounters Encounter ID Performer Location Encounter Start Date Encounter Closed Date Diagnosis/Indication Diagnosis SNOMED-CT Code Diagnosis ICD10 Code Diagnosis IMO Codes Diagnosis Note [id number] MD [facility] [address] floor [address] [place] [address] 11/12/2023 10:42:12 12/17/2023 10:44:07 Fracture of forearm 90578151 S52.92XD [id number] MD Joss[facility] Holland [address] floor [address] [place] [address] 12/25/2023 11:07:29 01/21/2024 10:40:42 Fracture of forearm 87624073 S52.92XD [id number] Kelly Chand, DPT [facility] [address] [place] [address] 01/12/2024 14:55:38 01/12/2024 16:35:26 Fracture of forearm 34615668 S52.92XD [id number] Kit Aragon , [facility] [address] [place] [address] 02/08/2024 14:20:14 02/08/2024 15:14:50 Closed fracture of head of left radius 4516547841 0570008 S52.122D [id number] David Mcdowell, CLUB MANAGER [facility] [address] [place] [address] 02/10/2024 12:48:24 02/10/2024 14:04:15 Closed fracture of head of left radius 7973049452 6870577 S52.122D [id number] MD Jossue Holland 3[address] floor [address] [place] [address] 02/19/2024 10:34:45 03/16/2024 11:40:12 Fracture of forearm 80336806 S52.92XD [id number] David Fudge, CLUB MANAGER [facility] [address] [place] [address] 02/24/2024 13:59:54 02/24/2024 15:01:40 Closed fracture of head of left radius 0912938913 8204701 S52.122D [id number] Kit Aragon , DPT [facility] [address] [place] [address] 03/02/2024 14:20:08 03/02/2024 16:29:03 Closed fracture of head of left radius 2388022828 8006508 S52.122D [id number] Kit Aragon , DPT [facility] [address] [place] [address] 03/09/2024 13:41:37 03/09/2024 17:12:07 Closed fracture of head of left radius 3927879966 [id number] S52.122D [id number] David Keee, CLUB MANAGER [facility] [address] [place] [address] 03/14/2024 13:17:14 03/14/2024 14:00:35 Closed fracture of head of left radius 1638639068 [id number] S52.122D [id number] David Keee, CLUB MANAGER [facility] [address] [place] [address] 03/18/2024 13:37:05 03/18/2024 15:15:24 Closed fracture of head of left radius 9847387954 5679738 S52.122D [id number] Kit Aragon , DPT [facility] [address] [place] [address] 03/21/2024 13:25:16 03/21/2024 15:02:00 Closed fracture of head of left radius 7204945810 [id number] S52.122D [id number] Jesus Saha PA-C [facility] [address] [place] [address] 08/17/2024 11:07:12 08/30/2024 11:31:25 Pain of right shoulder region 0679709123 M25.511 [id number] Dislocatio n of shoulder joint 495970698 S43.004A [id number] Derangemen t of right shoulder joint 1044786302 1617285 M24.837 [id number] Jesus Saha PA-C [facility] [address] [place] [address] 08/31/2024 10:08:02 09/08/2024 09:33:19 Instability of right shoulder joint 309859273 M25.311 84380064 [id number] JULIA [facility] [address] floor [address] [place] [address] 10/18/2024 09:43:47 10/27/2024 08:19:51 Instability of right shoulder joint 461610621 M25.311 [id number] Health Concerns Section Related Observation LastModified by Organization Detai ls LastModified Time None Recorded Concern Status LastModified by Organization Details LastModified Time None Recorded Advance Directives Directive None Recorded Payers Insurance Date Sequence Insurance Name Policy Number Policy Gan Covered Member ID Gan Member ID Guarantor Name 10/18/2024 1 [place] [facility] Mukund Rosado [id number] Mukund Rosado Notes Date Note Type Note Provider Name and Address Organization Details Recorded Time 03/18/2024 text/html Patient presents today reporting 0/10 pain at present. Has been getting better but concerned with returning to work and experiencing dropping things again. David Mcdowell, CLUB MANAGER [address], [place], [address], [facility] 03/21/2024 00:20:10 03/21/2024 text/html Pt reports no px but isnt feeling good today. Kit Aragon, DPT [address], [place], [address], [facility] 03/22/2024 12:04:48 08/17/2024 text/html I am seeing this patient under the supervision of Dr. Esteban who was available but did not see the patient. HPI: Patient is a 48-year-old male comes the office today for evaluation of an injury suffered to his right shoulder. He reports 2 weeks ago slipped and fell down some stairs had a documented shoulder dislocation at that time. He was taken to the hospital underwent relaxation technique and underwent a closed reduction of the shoulder dislocation. He had an episode where shoulder popped out immediately after the reduction when he leaned forward and had to have a second reduction. He was given a sling he comes in today for evaluation reporting mild discomfort and numbness in the lateral aspect of the shoulder PFMSH and ROS has been reviewed, updated, and signed by me and is located in the patient s chart. PHYSICAL EXAMINATION: The patient is well appearing and in no apparent distress. Alert and oriented x 3. Gait is symmetric. Examination of the shoulder findings include: Sling is removed, he reports decreased sensation of the deltoid but normal muscle tone, forward elevation 90 degrees external rotates 20 degrees, rotator cuff strength 4/5, AC joint nontender. Apprehension or instability was not assessed at today's visit. Cervical ROM normal without radicular symptoms. No erythema, no redness, no warmth. Peripheral, vascular, lymphatic examination, skin, neurological, coordination, reflexes, sensation are within normal limits. X-RAY REPORT: X-rays were ordered, obtained and independently reviewed today at [facility]. Four views of the right shoulder demonstrate posttraumatic AC joint DJD, no acute fracture, cortical lucency avulsion of the anterior glenoid consistent with large bony Bankart lesion and glenoid rim injury. 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 I recommend an MRI scan for further assessment of injuries to the rotator cuff and anterior glenoid rim. All this discussed he will be reevaluated in 4 weeks time to also reassess the neurologic recovery of the axillary nerve neuropraxia. [employer] speech recognition paediatric thoracic physician software was used to create portions of this document. An attempt at proofreading has been made to minimize errors. Please call for corrections. Jesus Saha PA-C [address] [place] [address], [place], [address], [facility] 08/17/2024 12:06:24 08/31/2024 text/html I am seeing this patient under the supervision of Dr. Ricks who was available but did not see the patient. HPI: Patient is a 48-year-old male comes the office today for evaluation of an injury suffered to his right shoulder. He reports 2 weeks ago slipped and fell down some stairs had a documented shoulder dislocation at that time. He was taken to the hospital underwent relaxation technique and underwent a closed reduction of the shoulder dislocation. He had an episode where shoulder popped out immediately after the reduction when he leaned forward and had to have a second reduction. He was given a sling he comes in today for evaluation reporting mild discomfort and numbness in the lateral aspect of the shoulder Clinical update: Patient returns today follow-up evaluation to assess his range of motion and nerve function and review his MRI scan. He reports some recovering of his axillary nerve neuropraxia. MRI findings: Independently reviewed today of the right shoulder findings consistent with anterior shoulder dislocation with large Hill-Sachs deformity bony Bankart with anterior inferior glenoid fracture involving less than 20% of the glenoid with. Examination of the shoulder findings include: Sling is removed, forward elevation to 140 degrees, external take 25 degrees, he reports now normal sensation about the deltoid, elbow range of motion pain-free and full.. Cervical ROM normal without radicular symptoms. No erythema, no redness, no warmth. Peripheral, vascular, lymphatic examination, skin, neurological, coordination, reflexes, sensation are within normal limits. X-RAY REPORT: X-rays were ordered, obtained and independently reviewed today at [facility]. Four views of the right shoulder demonstrate posttraumatic AC joint DJD, no acute fracture, cortical lucency avulsion of the anterior glenoid consistent with large bony Bankart lesion and glenoid rim injury. 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 Follow-up 6 weeks time to discuss definitive care. [employer] speech recognition paediatric thoracic physician software was used to create portions of this document. An attempt at proofreading has been made to minimize errors. Please call for corrections. Jesus Saha PA-C [address], [place], [address], [facility] 08/31/2024 11:47:26 10/18/2024 text/html I am seeing this patient under the supervision of Dr. Carbajal who was available but did not see the patient. HPI: Patient is a 48-year-old male comes the office today for evaluation of an injury suffered to his right shoulder. He reports 2 weeks ago slipped and fell down some stairs had a documented shoulder dislocation at that time. He was taken to the hospital underwent relaxation technique and underwent a closed reduction of the shoulder dislocation. He had an episode where shoulder popped out immediately after the reduction when he leaned forward and had to have a second reduction. He was given a sling he comes in today for evaluation reporting mild discomfort and numbness in the lateral aspect of the shoulder Clinical update: Patient returns today for follow-up evaluation, he is made excellent progress with regards to physical therapy and is pleased with his initial progress. 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 MRI findings: Independently reviewed today of the right shoulder findings consistent with anterior shoulder dislocation with large Hill-Sachs deformity bony Bankart with anterior inferior glenoid fracture involving less than 20% of the glenoid with. Examination of the shoulder findings include: Forward elevation 175 degrees, external rotation 35 degrees, rotator cuff strength 4+/5 in all planes, normal sensation of the deltoid, normal activation of the deltoid, he is not apprehensive in positions of instability. Cervical ROM normal without radicular symptoms. No erythema, no redness, no warmth. Peripheral, vascular, lymphatic examination, skin, neurological, coordination, reflexes, sensation are within normal limits. X-RAY REPORT: X-rays were ordered, obtained and independently reviewed today at [facility]. Four views of the right shoulder demonstrate posttraumatic AC joint DJD, no acute fracture, cortical lucency avulsion of the anterior glenoid consistent with large bony Bankart lesion and glenoid rim injury. IMPRESSION: Acute anterior shoulder dislocation with glenoid rim injury PLAN: Today we talked about associated risk factors those positions which would potentially put him at risk for recurrent dislocation, anything behind the coronal plane of the body or overhead should be avoided. Considering his recent progress with continue to modify his activities if symptoms recur or is having any other symptoms of instability we can revisit the option of surgical intervention. [facility] speech recognition paediatric thoracic physician software was used to create portions of this document. An attempt at proofreading has been made to minimize errors. Please call for corrections. Jesus Saha PA-C [address] [facility] [address], [place], [address], [facility] 10/18/2024 10:26:59
--- OUTSIDE RECORDS SUMMARY | 2025-02-13 16:19 | XMS_ITS | Clinical Summary ---
Author Organization [facility] ity Address [address] [place] [address] Care Team Providers Care Signal Fitter Name Role Phone Unavailable Primary Care Provider [...] 5 season) 2025 Influenza Vaccine (#1) 2025 RSV Immunization Adult Patie nts (1 - 1-dose 75+ series) 08/27/2051 HIB Vaccines Aged Out No longer eligi [...]
--- OUTSIDE RECORDS SUMMARY | 2025-02-13 16:19 | XMS_ITS | Encounter Summary ---
Author Organization [employer] Address [address] 7[address] [place] [address] Care Team Providers Care Security Installer Name Role Phone Zeenat Huitron MD Primary Care Provider [phone] Encounter Details Date Type Department Care Team (Latest Contact Info) Description 02/13/2025 Travel Social History Tobacco Use Types Packs/Day Years Used Date Smoking Tobacco: Former Cigarettes Depression Answer Date Recorded Patient Health Questionnaire-9 Score 5 02/13/2025 Patient Health Questionnaire-9 Score 5 02/13/2025 Last PHQ-9: Questionnaire Data Not on file 0 02/13/2025 Housing Stability Answer Date Recorded What is your housing situation today? I have lucy yaneth 02/13/[address] you li [...] AM EDT documented as of this encounter Functional Status * Over the [...] 11:16 AM EDT [place] Mcguire [place] * Poor appetite or overeating Answer Date of Assessment Author Several days 02/13/2025 11:16 AM EDT [place] * Feeling bad about yourself - or that you are a failure or have let yourself or your family down Answer Date of Assessment Author Not at all 02/13/2025 11:16 AM EDT Wood Mcguire [place] * Trouble concentrating on things, such as reading the newspaper or watching television Answer Date of Assessment Author Several days 02/13/2025 11:16 AM EDT [place] Mcgu[place] * Moving or speaking so slowly that other people could have noticed? Or the opposite - being so fidgety or restless that you have been moving around a lot more than usual. Answer Date of Assessment Author Not at all 02/13/2025 11:16 AM EDT [place] Mcguire [place] * Thoughts that you would be better off or hurting yourself in some way Answer Date of Assessment Author Not at all 02/13/2025 11:16 AM EDT [place] Mcguire [place] * Patient Health Questionnaire-9 Score Answer Date of Assessment Author 5 02/13/2025 11:16 AM EDT [place] Mcgu[place] * How difficult have these problems [...] Visit [facility] [address] [place] [address] Ericka Al documented as of this encounter Visit Diagnoses Not on filedocumented in this encounter Additional Health Concerns Assessment Noted Time PHQ-9 Depression Total Score: 5 02/14/20 25 11:16 AM EDT documented as of this encounter Care Teams Security Installer Relationship Specialty Start Date End Date Zeenat Huitron MD [address] [place] [address] PCP - General Family Medicine 02/27/21 documented as of this encounter
--- OUTSIDE RECORDS SUMMARY | 2025-02-13 16:19 | XMS_ITS | Encounter Summary ---
Author Organization [employer] Address [address] [place] [address] 7 [place] [address] Care Team Providers Care Press Tender Smoke Signal Name Role Phone Zeenat Huitron MD Primary Care Provider [phone] Reason for Visit * Reason Onset Date Comments chart prep 02/10/2025 Encounter Details Date Type Department Care Team ([facility] st Contact Info) Description 02/10/2025 Telephone [facility] MED & PEDS [address] [place] [address] Zeenat Huitron MD [address] [place] [address] chart prep Social History Tobacco Use Types Packs/Day Years [...] encounter Miscellaneous Notes * Telephone Encounter - [place] Mcgu[place] - 02/10/2025 10:58 AM EDT Chart Prep Labs: done Images: not applicable Referrals: complete Vaccines due: Covid, Flu, and Hep B Screenings: colonoscopy Overdue care gaps: SBIRT, SDOH, and Disability screen documented in this encounter Plan of Treatment Upcoming Encounters Date Type Department Care Team (Late st Contact Info) Description 04/05/2025 1:00 PM EST Office Visit [facility] ADULT DENTAL [address] [place] [address] Ericka Al documented as of this encounter Visit Diagnoses Not on filedocumented in this encounter Additional Health Concerns Assessment Noted Time PHQ-9 Depression Total Score: 9 01/10/20 25 11:40 AM EDT documented as of this encounter Care Teams Press Tender Smoke Signal Relationship Specialty Start Date End Date Zeenat Huitron MD [address] [facility] [address] PCP - General Family Medicine 02/27/21 documented as of this encounter
--- OUTSIDE RECORDS SUMMARY | 2025-02-13 16:20 | XMS_ITS | Encounter Summary ---
Author Organization [employer] Address [address] [place] [address] 7 [place] [address] Care Team Providers Care Bundler Name Role Phone Zeenat Huitron MD Primary Care Provider [phone] Reason for Visit * Reason Comments Med Change Request Encounter Details Date Type Department Care Team ([facility] st Contact Info) Description 05/03/2024 Refill [facility] CHC MED & PEDS [address] [place], [place] [id number] Zeenat Huitron MD [address] [place] [address] Social History Tobacco Use Types Packs/Day Years [...] Description 04/05/2025 1:00 PM EST Office Visit [facility] CH[facility] ADULT DENTAL [address] [place] [address] Ericka Al documented as of this encounter Visit Diagnoses Not on filedocumented in this encounter Additional Health Concerns Assessment Noted Time PHQ-9 Depression Total Score: 9 03/27/20 23 11:01 AM EST documented as of this encounter Care Teams Bundler Relationship Specialty Start Date End Date Zeenat Huitron MD [address] [place] [address] PCP - General Family Medicine 02/27/21 documented as of this encounter
--- OUTSIDE RECORDS SUMMARY | 2025-02-13 16:20 | XMS_ITS | Encounter Summary ---
Author Organization [email or web address] Address [address] [place] [address] 7 [place] [address] Care Team Providers Care Floor Sander Name Role Phone Zeenat Huitron MD Primary Care Provider [phone] Reason for Visit * Reason Onset Date Comments Appointment Request 04/11/2024 Encounter Details Date Type Department Care Team ([facility] st Contact Info) Description 04/11/2024 Telephone [facility] MEDICINE [address] [place] [address] Zeenat Huitron MD [address] [place] [address] Appointment Request Social History Tobacco Use Types [...] r/s appt on 04/12. Contact pt at [phone] documented in this encounter Plan of Treatment Upcoming Encounters Date Type Department Care Team (Late st Contact Info) Description 04/05/2025 1:00 PM EST Office Visit [facility] CHC ADULT DENTAL [address] [place] [address] Ericka Al documented as of this encounter Visit Diagnoses Not on filedocumented in this encounter Additional Health Concerns Assessment Noted Time PHQ-9 Depression Total Score: 9 03/27/20 23 11:01 AM EST documented as of this encounter Care Teams Floor Sander Relationship Specialty Start Date End Date Zeenat Huitron MD [address] [place] [address] PCP - General Family Medicine 02/27/21 documented as of this encounter
--- OUTSIDE RECORDS SUMMARY | 2025-02-13 16:20 | XMS_ITS | Encounter Summary ---
Author Organization [employer] Address [address] [place] [address] 7 [place] [address] Care Team Providers Care Government Professor Name Role Phone Zeenat Huitron MD Primary Care Provider [phone] Reason for Visit * Reason Comments Med Change Request Encounter Details Date Type Department Care Team (Late st Contact Info) Description 12/17/2023 Refill [facility] MED & PEDS [address] [place] [address] Zeenat Huitron MD [address] [place] [address] Social History Tobacco Use Types Packs/Day Years [...] Description 04/05/2025 1:00 PM EST Office Visit [facility] ADULT DENTAL [address] [place] [address] Ericka Al documented as of this encounter Visit Diagnoses Not on filedocumented in this encounter Additional Health Concerns Assessment Noted Time PHQ-9 Depression Total Score: 9 03/27/20 23 11:01 AM EST documented as of this encounter Care Teams Government Professor Relationship Specialty Start Date End Date Zeenat Huitron MD [address] [place] [address] PCP - General Family Medicine 02/27/21 documented as of this encounter
--- OUTSIDE RECORDS SUMMARY | 2025-02-13 16:20 | XMS_ITS | Encounter Summary ---
Author Organization [employer] Address [address] [place] [address] 7t [place] [address] Care Team Providers Care Casting Associate Name Role Phone Zeenat Huitron MD Primary Care Provider [phone] Encounter Details Date Type Department Care Team ([facility] st Contact Info) Description 02/01/2025 Telephone [facility] MEDICINE [address] [place] [address] Zeenat Huitron MD [address] [place] [address] Social History Tobacco Use Types Packs/Day Years [...] encounter Miscellaneous Notes * Telephone Encounter - Xuan Mascorro RN - 02/08/2025 11:32 AM EDT My chart message sent * Telephone Encounter - Katharine Deluca - 02/08/2025 11:18 AM EDT Tc from pt retuning call, requesting the appt * Telephone Encounter - Xuan Mascorro RN - 02/06/2025 9:39 AM EDT Tc to patient. No Answer. Detailed message left to return call to office to schedule appointment with provider. * Telephone Encounter - Zeenat Huitron MD - 02/06/2025 8:56 AM EDT Please schedule where available. ThankS! * Telephone Encounter - Lucina Alcala RN - 02/03/2025 1:49 PM EDT Images from the original note were not included. TC placed to pt via [employer] chief building inspector (ID#[id number]) to inform and advise of below PCP message. Advised pt per PCP, recommended to continue to hold medication and follow up. Pt asking if they are to wait for follow up or book a sooner appointment. Advised message to be sent to PCP to advise. Pt verbalized understanding and denies questions at this time. Zeenat Huitron MD 02/03/25 12:21 PM Note Recommended to cont to hold and followup * Telephone Encounter - Zeenat Huitron MD - 02/03/2025 12:21 PM EDT Recommended to cont to hold and followup * Telephone Encounter - Lucina Alcala RN - 02/03/2025 10:27 AM EDT Images from the original note were not included. TC placed to pt to inform and advise of below PCP messages. Advised pt of below PCP messages. Pt reports they understood some of what this television script writer said, but pt requesting chief building inspector. TC placed to pt via S chief building inspector (Cassandra ID#[id number]). Advised pt cologuard kit arrived with the sample empty to thefacility. Advised pt cologuard to reach out to send a new sample. Advised pt labs showed elevated creatinine, potassium and ALP. Advised pt per PCP, unclear if he was sick during these lab screening because his neutrophil was also elevated. Advised pt recommended to repeat lab testing and hydration. Advised pt lab orders placed to go to lab at earliest convenience. Pt verbalized understanding. Ptreports they stopped taking their losartan (Cozaar) 25 MG tablet 3 days ago as their blood pressurewas low. Pt reports BP 91/70. Pt reports since they stopped taking BP medication, BP has been around 110/80. Pt asking if they are to begin taking medication again or if to continue with not being onmedication. Advised pt message to be sent to PCP to review and advise regarding BP medication. Pt ve rbalized understanding and denies questions at this time. Zeenat Huitron MD to [facility] Med [facility] Peds Nurses 01/26/25 11:23 AM Result Note Anali Grace Team! Can you please call Mukund Rosado and inform about results? Sample was empty when it arrived in facility. Per records they will contact patient to send a new sample. Thanks! Zeenat Huitron MD to [facility] Nurses 02/01/25 10:12 AM Result Note Anali Grace Team! Can you please call Mukund Rosado and inform about results? Patients labs showed elevated creatinine, potassium and ALP. Unclear if he was sick during these lab screening because his neutrophil was also elevated. Recommended repeat lab testing, & hydration. Thanks! Zeenat * Telephone Encounter - Alexsander Li - 02/01/2025 1:42 PM EDT Tc from pt returning call back regarding prior message. Contact pt at [phone] * Telephone Encounter - Xuan Guevara RN - 02/01/2025 11:56 AM EDT T/C to pt to advise of message from PCP: Can you please call Mukund Rosado and inform about results? Patients labs showed elevated creatinine, potassium and ALP. Unclear if he was sick during these lab screening because his neutrophil was also elevated. Recommended repeat lab testing, & hydration. No answer, v/m left to return call to [facility] nurses. documented in this encounter Plan of Treatment Upcoming Encounters Date Type Department Care Team (Late st Contact Info) Description 04/05/2025 1:00 PM EST Office Visit [facility] [address] [place] [address] Ericka Al documented as of this encounter Visit Diagnoses Not on filedocumented in this encounter Additional Health Concerns Assessment Noted Time PHQ-9 Depression Total Score: 9 01/10/20 25 11:40 AM EDT documented as of this encounter Care Teams Casting Associate Relationship Specialty Start Date End Date Zeenat Huitron MD [address] [place] [address] PCP - General Family Medicine 02/27/21 documented as of this encounter
--- OUTSIDE RECORDS SUMMARY | 2025-02-13 16:20 | XMS_ITS | Encounter Summary ---
Author Organization [employer] Address [address] [place] [address] 7 [place] [address] Care Team Providers Care Personnel Assistant Name Role Phone Zeenat Huitron MD Primary Care Provider [phone] Reason for Visit * Reason Onset Date Comments Nurse Triage 08/10/2024 Encounter Details Date Type Department Care Team ([facility] st Contact Info) Description 08/10/2024 Telephone [facility] MEDICINE [address] [place] [address] Zeenat Huitron MD [address] [place] [address] Nurse Triage Social History Tobacco Use Types [...] 4:02 PM EDT Triage call Pt requests lang interpreter. Called [facility] [place] [id number], [place]. Pt reports dislocation of right shoulder , seen in [facility] 07/25/24. Pt has had follow up [...] apt 08/17/24 215pm with ANGIE Knott in [facility] . Pt agrees with this disposition and [...] 04/05/2025 1:00 PM EST Office Visit [facility] AD[facility] [address] [place], [place] [phone] Ericka Al documented as of this encounter Visit Diagnoses Not on filedocumented in this encounter Additional Health Concerns Assessment Noted Time PHQ-9 Depression Total Score: 9 03/27/20 23 11:01 AM EST documented as of this encounter Care Teams Personnel Assistant Relationship Specialty Start Date End Date Zeenat Huitron MD [address] [place] [address] PCP - General Family Medicine 02/27/21 documented as of this encounter
--- OUTSIDE RECORDS SUMMARY | 2025-02-13 16:20 | XMS_ITS | Encounter Summary ---
Author Organization [employer] Address [address] [place] [address] 7 [place] [address] Care Team Providers Care Sprayer Machine Name Role Phone Zeenat Huitron MD Primary Care Provider [phone] Reason for Visit * Reason Comments Med Refill Encounter Details Date Type Department Care Team (Late st Contact Info) Description 12/23/2023 Refill [facility] MEDICINE [address] [place], [place] [phone] Zeenat Huitron MD [address] [place], [place] [phone] Arm pain, left Social History Tobacco Use [...] Description 04/05/2025 1:00 PM EST Office Visit [facility] CH[facility] ADULT DENTAL [address] [place] [address] Ericka Al documented as of this encounter Visit Diagnoses Diagnosis Arm pain, left Pain in soft tissues of limb documented in this encounter Additional Health Concerns Assessment Noted Time PHQ-9 Depression Total Score: 9 03/27/20 23 11:01 AM EST documented as of this encounter Care Teams Sprayer Machine Relationship Specialty Start Date End Date Zeenat Huitron MD [address] [place] [address] PCP - General Family Medicine 02/27/21 documented as of this encounter
--- OUTSIDE RECORDS SUMMARY | 2025-02-13 16:20 | XMS_ITS | Clinical Summary ---
Author Organization [employer] Address [address] [place] [address] [address] [place] [address] Care Team Providers Care Community Outreach Director Name Role Phone Zeenat Huitron MD Primary Care Provider [phone] Allergies Active Allergy Reactions Criticality Noted Date [...] FOR PAIN 200 g 05/04/20 23 Active hydroquinone 4 % creamIndication s:Melasma Apply topically 2 times daily. 30 mL 1 05/03/20 24 025 Active rosuvastatin (Crestor) 40 MG tablet TAKE 1 TABLET BY MOUTH EVERY DAY 90 tablet 1 12/14/19 25 Active gabapentin (Neurontin) 400 MG capsuleIndicati ons:Chronic low back pain, unspecified back pain laterality, unspecified whether sciatica present Take 2 capsules (800 mg) by mouth at bedtime. 60 capsule 2 02/14/20 25 Active gabapentin (Neurontin) 400 MG capsuleIndicati ons:Chronic low back pain, unspecified back pain laterality, unspecified whether sciatica present Take 1 capsule (400 mg) by mouth 2 times daily. 60 capsule 2 02/14/20 25 Active buPROPion SR (Wellbutrin SR) 150 MG 12 hr tablet Take 1 tablet (150 mg) by mouth 2 times daily. Do not crush, chew, or split. 60 tablet 2 06/18/19 24 025 Discontinued(Th erapy completed) losartan (Cozaar) 25 MG tabletIndicatio ns:Elevated blood pressure reading TAKE 1 TABLET (25 MG) BY MOUTH ONCE PER DAY. 90 tablet 3 12/20/19 25 025 Discontinued(Th erapy completed) gabapentin (Neurontin) 400 MG capsuleIndicati ons:Chronic low back pain, unspecified back pain laterality, unspecified whether sciatica present Take 1 capsule in AM and PM, and 2 capsule at bedtime PO 90 capsule 11 01/12/20 25 025 Discontinued(Re order (will not trigger notification to Pharmacy)) Active Problems Problem Noted Date Diagnosed Date Mild episode of recurrent major depressive disor margarito 01/09/2025 Anxiety 01/09/2025 Pain in right shoulder 08/17/2024 Hypertension 02/03/2024 Assessment & Plan (02/03/2024 5:16 PM EDT): BP elevated at start of visit, at recheck within goal. Continue on medication and at home monitoring. Follow up in 3-4 months. 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 Relevant Medications Hydroquinone 4% cream Fracture of forearm 11/12/2023 Arm pain, left 03/27/2023 Assessment & Plan [...] organization. Date Type Department Care Team Description 02/13/2025 11:15 AM EDT Office Visit [facility] [address] [place] [address] Zeenat Huitron MD Primary hypertension (Primary Dx); Chronic low back pain, unspecified back pain laterality, unspecified whether sciatica present; Abnormal flushing and sweating; Kidney stones 02/13/2025 Travel 02/10/2025 Telephone [facility] [address] [place] [address] Zeenat Huitron MD chart prep 02/01/2025 Telephone [facility] [address] [place], [place] [phone] Zeenat Huitron MD 01/26/2025 Results Follow-Up [facility] [address] [place] [address] Zeenat Huitron MD Cologuard colon cancer screening, PSA, Total With Reflex to PSA, Free, CBC auto differential, Additional followed-up results: 7 01/11/2025 Telephone [facility] [address] [place] [address] Zeenat Huitron MD Medication Question 01/09/2025 11:15 AM EDT Office Visit [facility] [address] [place] [address] Zeenat Huitron MD Primary hypertension (Primary Dx); Chronic low back pain, unspecified back pain laterality, unspecified whether sciatica present; Screening for colon cancer; Encounter for health-related screening; Positive screening for depression on 9-item Patient Health Questionnaire (PHQ-9) 01/09/2025 Travel 12/30/2024 Patient Outreach [address] [address] Zeenat Huitron MD Pre-visit Planning (Pre visit planning LVM ) 12/29/2024 Telephone [facility] [address] [place] [address] Zeenat Huitron MD chart prep 12/17/2024 Refill [facility] [address] [place] [address] Zeenat Huitron MD Elevated blood pressure reading 12/12/[address] [address] Alli Michaels MD Arm pain, left 12/11/2024 Refill [facility] [address] [place] [address] Amelie Cook MD Arm pain, left 12/08/2024 Telephone [facility] [address] [place] [address] Zeenat Huitron MD No Show 12/01/2024 Telephone [facility] [address] [place] [address] Zeenat Huitron MD chart prep from Last 3 Months Immunizations Immunization Administration [...] Mass Index 23.86 02/13/2025 11:16 AM EDT Plan of Treatment Upcoming Encounters Date Type Department Care Team (Late st Contact Info) Description 04/05/2025 1:00 PM EST Office Visit [facility] ADULT DENTAL [address] [place] [address] Ericka Al Health Maintenance Due Date Last Done Comments CT Colonography 1976 Colonoscopy 1976 FIT 1976 Sigmoidoscopy 1976 Family Planning (PISQ) 08/27/1991 Hepatitis B Vaccines (1 of 3 - 19+ 3-dose series) 08/27/1995 Dental Oral Exam 09/02/2024 03/03/2024, 06/08/2015, 10/23/2014 Dental Prophylaxis 09/02/2024 03/03/2024 COVID-19 Vaccine (3 - 2024-2 6 season) 2025 07/30/2021, 10/03/2020 Dental X-Ray: Bitewings 03/04/2025 03/03/20 24, 10/23/2014 Influenza Vaccine (#1) 2025 4, 02/17/2013 Postponed from 01/16/2025 (Patient Refused) FOBT 02/09/2026 02/09/2025 Alcohol/Substance Use Screening 02/13/2026 02/13/2025 Depression Screening 02/13/2026 02/13/2025, 02/13/2025 Disability Screening 02/13/2026 02/13/2025 SDOH Screening 02/13/2026 02/13/2025 Tobacco Screening 02/13/2026 02/13/2025 Zoster Vaccines (1 of 2) 2026 Dental X-Ray: Full Mouth 03/04/2027 024, 10/23/2014 Colorectal Cancer Screening 02/10/2028 FIT DNA/Cologuard 02/10/2028 02/09/2025 Lipid Panel 01/27/2030 01/27/2025, 12/14/2023 DTaP/Tdap/Td Vaccines (2 - T d or Tdap) 12/16/2033 12/17/2023 RSV Patients and Patients Aged 60 years or older (1 - 1-dose 75+ series) 08/27/2051 Pneumococcal Vaccine: Pediatrics (0 to 5 Years) and At-Risk Patients (6 to 49) Years Aged Out 12/17/2023 No longer eligible b ased on patient's age to complete this topic HIV Screening Completed 01/27/2025 HIB Vaccines Aged Out No longer eligi [...] Associated Diagnosis Comments LAB COLOGUARD COLON CANCER SCREEN Routine 02/09/2025 10:00 PM EDT Screening for colon cancer URINALYSIS WITH REFLEX MICROSCOPIC Routine 01/27/2025 10:11 AM EDT Primary hypertension HEPATITIS B SURFACE ANTIGEN, EIA Routine 01/27/2025 10:08 AM EDT Encounter for health-related screening HEPATITIS B CORE AB TOTAL Routine 01/27/2025 10:08 AM EDT Encounter for health-related screening HEPATITIS B SURFACE ANTIBODY, QUALITATIVE Routine 01/27/2025 10:08 AM EDT Encounter for health-related screening HIV 1/2 ANTIGEN/ANTIBODY, FOURTH GENERATION W/RFL Routine 01/27/2025 10:08 AM EDT Encounter for health-related screening LIPID PANEL, STANDARD Routine 01/27/2025 10:08 AM EDT Primary hypertension COMPREHENSIVE METABOLIC PANEL Routine 01/27/2025 10:08 AM EDT Primary hypertension CBC WITH AUTO DIFFERENTIAL Routine 01/27/2025 10:08 AM EDT Primary hypertension PSA, TOTAL WITH REFLEX TO PSA, FREE Routine 01/27/2025 10:08 AM EDT Encounter for health-related screening LAB COLOGUARD COLON CANCER SCREEN- Unsuccessful Attempt Routine 01/23/2025 10:30 AM EDT Screening for colon cancer LAB COLOGUARD COLON CANCER SCREEN- Unsuccessful Attempt Routine 01/18/2025 10:46 PM EDT Screening for colon cancer PROPHYLAXIS - ADULT Routine 03/03/2024 1 0:00 AM EDT INTRAORAL - COMPLETE SERIES OF RADIOGRAPHIC IMAGES Routine 03/03/2024 10:00 AM EDT PERIODIC ORAL EVALUATION - ESTABLISHED PATIENT Routine 03/03/2024 10:00 AM EDT from Last 3 Months or Most Recently Relevant to Health Maintenance Results * (ABNORMAL) Cologuard?? colon cancer screening (02/09/2025 10:00 PM EDT) Only the most recent of3 resultswithin the time period is included. Cologuard Result Positive( A) Negative 02/13/2025 5:21 AM EDT [email or web address] (CLIA #:[id number]) Comment: The Cologuard (TM) test was performed on this specimen. POSITIVE TEST RESULT. A positive Cologuard result should be followed with a colonoscopy or visual examination of the colon. The normal value (reference range) for this assay is negative. TEST DESCRIPTION: Composite algorithmic analysis of stool DNA-biomarkers with hemoglobin immunoassay. Quantitative values of individual biomarkers are not reportable and are not associated with individual biomarker result reference ranges. Cologuard is intended for colorectal cancer screening of adults of either sex, 45 years or older, who are at average-risk for colorectal cancer (CRC). Cologuard has been approved for use by the U.S. FDA. The performance of Cologuard was established in a cross sectional study of average-risk adults aged 50-84. Cologuard performance in patients ages 45 to 49 years was estimated by sub-group analysis of near-age groups. Colonoscopies performed for a positive result may find as the most clinically significant lesion: colorectal cancer [4.0%], advanced adenoma (including sessile serrated polyps greater than or equal to 1cm diameter) [20%] or non- advanced adenoma [31%]; or no colorectal neoplasia [45%]. These estimates are derived from a prospective cross-sectional screening study of 10,000 individuals at average risk for colorectal cancer who were screened with both Cologuard and colonoscopy. (Latrell Cochran al, N Engl J Med 2014;370(14):6456-7890.) Cologuard may produce a false negative or false positive result (no colorectal cancer or precancerous polyp present at colonoscopy follow up). A negative Cologuard test result does not guarantee the absence of CRC or advanced adenoma (pre-cancer). The current Cologuard screening interval is every 3 years. ([place] [employer] and U.S. Multi-Society Task Force). Cologuard performance data in a 10,000 patient pivotal study using colonoscopy as the reference method can be accessed at the following location: [email or web address]. Additional description of the Cologuard test process, warnings and precautions can be found at [email or web address]. Stool specimen (specimen) Rectal contents / Unknown 02/09/2025 10:00 PM EDT 02/11/2025 10:44 AM EDT us Zeenat Huitron MD LAB MOLECULAR DIAGNOSTICS ORD ERABLES Final Result [email or web address] (CLIA #:[id number]) [address] [place], [place] [address], * Urinalysis with reflex microscopic (01/27/2025 10:11 AM EDT) Color Urine Yellow [facility] Appearance Urine Turbid [facility] PH 5.5 5.0 - 9.0 [facility] Glucose Urine UA Negative Negative mg/dL [facility] Urine Blood Negative Negative [facility] Specific [place] - Urine 1.020 1.005 - 1.025 [facility] Urine Protein Trace Neg-Trace mg/dL [facility] Urine Ketones Negative Negative mg/dL [facility] Nitrite Urine Negative Negative [facility] Leukocyte Esterase Urine Negative Negative [facility] Urine (Urine, Random) 01/27/2025 10:11 AM EDT 01/27/2025 2:20 PM EDT Narrative [facility] - 01/27/2025 2:38 PM EDT [id number], Clean Catch us Zeenat Huitron MD LAB URINE ORDERABLES Final Re sult [facility] [address] [place] [phone] * PSA, Total With Reflex to PSA, Free (01/27/2025 10:08 AM EDT) PSA,Total (Free>4and<10) 0.35 0.00 - 4.00 ng/mL [facility] Comment:A Free PSA was not p erformed: The percentage of Free PSA can be used to enhance the differentiation of prostate cancer from benign prostatic disease in subjects whose PSA levels are between 4.0 and 10.0 ng/mL. For subjects whose PSA levels are below 4.0 or above 10.0 ng/mL, the risk of prostate cancer is determined on the basis of the PSA alone. Therefore the % Free PSA is recommended only for those subjects whose PSA levels are between 4.0 and 10.0 ng/mL.PSA methodology: Gupta Alinity i ChemiluminescentMicroparticle Immunoassay (CMIA) 01/27/2025 10:0 8 AM EDT 01/27/2025 2:18 PM EDT us Zeenat Huitron MD LAB BLOOD ORDERABLES Final Re sult [facility] [address] [place] [phone] [phone] * (ABNORMAL) CBC auto differential (01/27/2025 10:08 AM EDT) White Blood Count 8.3 4.8 - 10.8 X10*3/uL [facility] Red Blood Count 4.09(L) 4.60 - 5.80 X10*6/uL [facility] Hemoglobin 12.9(L) 14.0 - 18.0 g/dl [facility] Hematocrit 38.7(L) 42.0 - 52.0 % [facility] Mean Corpuscular Volume 94.6 80.0 - 98.0 fL [facility] Mean Corpuscular Hemoglobin 31.5 27.0 - 33.0 pg [facility] Mean Corpuscular HGB Conc 33.3 31.0 - 36.0 g/dl [facility] Red Cell Distribution Width 13.9 11.0 - 16.0 % [facility] Platelet Count 163 160 - 400 X10*3/uL [facility] Mean Platelet Volume 10.1 9.4 - 12.4 fL [facility] Neutrophils Percent Auto 77.0(H) 45 - 73 % [facility] Imm Gran Pct Auto 0.5(H) 0.0 - 0.4 % [facility] Lymphocytes Percent Auto 15.3(L) 20 - 40 % [facility] Monocytes Percent Auto 6.3 2 - 11 % [facility] Eosinophils Percent Auto 0.4 0 - 4 % [facility] Basophils Percent Auto 0.5 0 - 2 % [facility] NRBC Pct Auto 0.0 0.0 - 0.2 /100WBC [facility] Neutrophils Absolute Auto 6.4 2.0 - 8.3 x10*3/uL [facility] Imm Gran Abs Auto 0.04(H) 0.00 - 0.03 X10*3/uL [facility] Lymphocytes Absolute Auto 1.3 1.2 - 4.9 X10*3/uL [facility] Monocytes Absolute Auto 0.5 0.1 - 1.2 X10*3/uL [facility] Eosinophils Absolute Auto 0.0 0.0 - 0.4 X10*3/uL [facility] Basophils Absolute Auto 0.0 0.0 - 0.2 X10*3/uL [facility] NRBC Abs Auto 0.000 0.0 - 0.012 X10*3/uL [facility] Blood Venous blood specimen / Unknown 01/27/2025 10:08 AM EDT 01/27/2025 2:18 PM EDT Zeenat Huitron MD LAB BLOOD ORDERABLES Final Re sult Performing Organization Address City/[facility]/ZIP Co de Phone Number [facility] [address] [place] [phone] * Hepatitis B surface antigen, EIA (01/27/2025 10:08 AM EDT) Hepatitis B Surface Ag Negative Negative [facility] Blood Venous blood specimen / Unknown 01/27/2025 10:08 AM EDT 01/27/2025 2:18 PM EDT Zeenat Huitron MD LAB BLOOD ORDERABLES Final Re sult Performing Organization Address City/[facility]/ZIP Co de Phone Number [facility] [address] [place] [phone] * Hepatitis B Core Antibody, Total (01/27/2025 10:08 AM EDT) Hepatitis B Core Antibody Nonreactive Nonreactive [facility] Blood Venous blood specimen / Unknown 01/27/2025 10:08 AM EDT 01/27/2025 2:18 PM EDT Zeenat Huitron MD LAB BLOOD ORDERABLES Final Re sult Performing Organization Address [facility]/ZIP Co de Phone Number [facility] [address] [place] [phone] * HIV-1/2 Antigen and Antibodies, Fourth Generation, with Reflexes (01/27/2025 10:08 AM EDT) HIV AB/AG Nonreactive Nonreactive [facility] Comment:HIV-1 p24 Ag and/or HIV-1/HIV-2 Ab not detected.A test result that is nonreactive does not exclude thepossibility of exposure to or infection with HIV-1 and/orHIV-2. Nonreactive results in this assay for individualswith prior exposure to HIV-1 and/or HIV-2 may be due toantigen and antibody levels that are below the limit ofdetection of this assay.The [employer] HIV Ag/Ab Combo assay result andsupplemental assay results should be interpreted inconjunction with the patient's clinical presentation,history and other laboratory results. If the results areinconsistent with clinical evidence, additional testing issuggested to confirm the result. Blood Venous blood specimen / Unknown 01/27/2025 10:08 AM EDT 01/27/2025 2:18 PM EDT Zeenat Huitron MD LAB BLOOD ORDERABLES Final Re sult Performing Organization Address [facility] Co de Phone Number [facility] [address] [place] [phone] * Hepatitis B Surface Antibody, Qualitative (01/27/2025 10:08 AM EDT) ~Hepatitis B Surface Antibody REACTIVE Nonreactive [facility] Comment:REACTIVE: > 11.99 mI U/mL Blood Venous blood specimen / Unknown 01/27/2025 10:08 AM EDT 01/27/2025 2:18 PM EDT Zeenat Huitron MD LAB BLOOD ORDERABLES Final Re sult Performing Organization Address [facility] de Phone Number [facility] [address] [place] [phone] * Lipid Panel, Standard (01/27/2025 10:08 AM EDT) Triglycerides 49 <150 mg/dL [facility] Comment:Desirable Triglyceri de: less than 150 mg/dLBorderline High Triglyceride 150-199 mg/dLHigh Triglyceride: 200-499 mg/dLVery High Triglyceride: greater than or equal to 5OO mg/dL Cholesterol 99 <200 mg/dL [facility] Comment:Desirable Cholestero l: less than 200 mg/dLBorderline High Cholesterol: 200-239 mg/dLHigh Cholesterol: greater than 239 mg/dL LDL Cholesterol Calculated 46 <100 mg/dL [facility] Comment:Desirable LDL: less than 100 mg/dLNear Optimal/Above Optimal LDL: 110- 129 mg/dLBorderline High LDL: 130-159 mg/dLHigh LDL: 160-189 mg/dLVery High LDL: greater than or equal to 190 mg/dL HDL Cholesterol 44 >40 mg/dL [facility] Comment:Desirable HDL: great er than 40 mg/dL Note: This HDL assay may give artificially low results in patients with liver disease. Blood Venous blood specimen / Unknown 01/27/2025 10:08 AM EDT 01/27/2025 2:18 PM EDT us Zeenat Huitron MD LAB BLOOD ORDERABLES Final Re sult Performing Organization Address [facility] Co de Phone Number [facility] [address] [place] [phone] * (ABNORMAL) Comprehensive Metabolic Panel (01/27/2025 10:08 AM EDT) Sodium 140 135 - 145 mmol/L [facility] Potassium 5.4(H) 3.3 - 5.1 mmol/L [facility] Chloride 106 96 - 108 mmol/L [facility] Carbon Dioxide 28 22 - 29 mmol/L [facility] Anion Gap 11(L) 12 - 20 [facility] Urea Nitrogen (BUN) 17(H) 9 - 16 mg/dL [facility] Creatinine, Serum 1.41(H) 0.5 - 1.4 mg/dL [facility] Estimated Glomerular Filt Rate 54 [facility] Comment:Chronic Kidney Disea se: Estimated GFR < 60 mL/min/1.73a2Sllhbc Kidney Disease: Estimated GFR < 15 mL/min/1.73m2 Glucose 105 60 - 115 mg/dL [facility] Calcium 9.2 8.4 - 10.2 mg/dL [facility] Bilirubin, Total 0.5 0.0 - 1.0 mg/dL [facility] Aspartate Amino Transferase 44(H) 5 - 37 U/L [facility] Alanine Aminotransferase 25 0 - 40 U/L [facility] Total Protein 7.2 6.5 - 8.0 g/dL [facility] Albumin Level 4.5 3.5 - 5.0 g/dL [facility] Alkaline Phosphatase 124(H) 39 - 117 U/L [facility] Blood Venous blood specimen / Unknown 01/27/2025 10:08 AM EDT 01/27/2025 2:18 PM EDT us Zeenat Huitron MD LAB BLOOD ORDERABLES Final Re sult [facility] [address] [place] [phone] from Last [address] [place] [address] [address] [address] C3 [facility] STAND ADULT [address] [place] [address] Care Teams Community Outreach Director Relationship Specialty Start Date End Date Zeenat Huitron MD [address] [place] [phone] PCP - General Family Medicine 02/27/21
--- OUTSIDE RECORDS SUMMARY | 2025-02-13 16:20 | XMS_ITS | Encounter Summary ---
Author Organization [employer] Address [address] [place] [address] [address] [place] [address] Care Team Providers Care Neon Sign Servicer Name Role Phone Zeenat Huitron MD Primary Care Provider [phone] Reason for Visit * Reason Comments Med Change Request Encounter Details Date Type Department Care Team (Late st Contact Info) Description 12/17/2023 Refill [facility] [address] [place] [address] Zeenat Huitron MD [address] [place] [address] Social History Tobacco Use Types Packs/Day Years [...] Visit [facility] ADULT [facility]ENT[facility] [address] [place] [address] Ericka Al documented as of this encounter Visit Diagnoses Not on filedocumented in this encounter Additional Health Concerns Assessment Noted Time PHQ-9 Depression Total Score: 9 03/27/20 23 11:01 AM EST documented as of this encounter Care Teams Neon Sign Servicer Relationship Specialty Start Date End Date Zeenat Huitron MD [address] [place] [address] PCP - General Family Medicine 02/27/21 documented as of this encounter
--- OUTSIDE RECORDS SUMMARY | 2025-02-13 16:20 | XMS_ITS | Encounter Summary ---
Author Organization [employer] Address [address] [place] [address] [address] [place] [address] Care Team Providers Care Certified Professional Ergonomist Name Role Phone Zeenat Huitron MD Primary Care Provider [phone] Reason for Visit * Reason Comments Med Change Request Encounter Details Date Type Department Care Team (Late Contact Info) Description 05/21/2024 Refill [facility] MED & PEDS [address] [place] [address] Alli Michaels MD [address] [place] [address] Melasma Social History Tobacco Use Types Packs/Day [...] Description 04/05/2025 1:00 PM EST Office Visit [facility] ADULT DENTAL [address] [place] [address] Ericka Al documented as of this encounter Visit Diagnoses Diagnosis Melasma Other dyschromia documented in this encounter Additional Health Concerns Assessment Noted Time PHQ-9 Depression Total Score: 9 03/27/20 23 11:01 AM EST documented as of this encounter Care Teams Certified Professional Ergonomist Relationship Specialty Start Date End Date Zeenat Huitron MD [address] [place] [address] PCP - General Family Medicine 02/27/21 documented as of this encounter
== END 2025-02-13 14:28 | disposition home or self-care (01) ==
LOC: HO.HHCLNP 14:27
PROVIDERS: Visit Provider Family Medicine
DX: N20.0 Calculus of kidney (principal)
CPT/HCPCS: 82365; 88300